=== PATIENT | female | born 1990 | race Caucasian/White ===

== ENCOUNTER 2017-01-15 15:52 | Emergency (ER) | payer OTHER ==
[~2017-01-15] VITALS: Ht 154.9 cm; Wt 83.0 kg
[~2017-01-15 15:52] MED LIST: ATEN100T PO; DOXE25CA2 PO; IBUP-232 PO; LURA1TAB2 PO; MACR100C2 PO; MOBI15TA PO; PRIL40CA PO; PROM25TA5 PO; VIST50CA PO; ZANTTAB PO; ZOFR4TAB3 SL
[2017-01-15 16:01] VITALS: BP 112/84; PULSE 70; RESP 16; TEMP 98.1; O2SAT 98
[2017-01-15] MEDS ORDERED: LITH150C PO (16:17)
[2017-01-15] MEDS ORDERED: OMEP40CA2 PO (16:17)
--- NOTE | 2017-01-15 16:26 | PD ---
HPI Chief Complaint: Abdominal Pain Time Seen by Provider: 16:19 Travel History International Travel<30 days: No Contact w/Intl Traveler<30days: No Traveled to known affect area: No History of Present Illness HPI 26-year-old female with history of PCOS, here for evaluation because she believes she may have ruptured an ovarian cysts. Patient has had left lower quadrant abdominal pain and suprapubic pain for the last 2 days which she describes as sharp, moderate to severe, associated with nausea and vomiting, worse with movement and palpation. She denies vaginal bleeding or discharge. She states she has a Mirena IUD. No urinary symptoms. She has had one abdominal surgery which consisted of a large ovarian cyst removal. PFSH Past Medical History Hx Anticoagulant Therapy: No Arthritis: Yes (rheumatoid arthritis) Autoimmune Disease: Yes Blood Disorders: No Bipolar Disorder: Yes Anxiety: Yes Depression: Yes (OCD) Heart Rhythm Problems: No Cancer: No Cardiovascular Problems: Yes (HTN, CHOL) High Cholesterol: Yes Chemotherapy: No Chest Pain: Yes Congestive Heart Failure: No Cerebrovascular Accident: No Diabetes: No Diminished Hearing: No Endocrine: No Gastrointestinal Disorders: Yes (IBS) GERD: Yes Genitourinary: Yes Headaches: No Hepatitis: No Hiatal Hernia: No Heparin Induced Thrombocytopen: No Hypertension: Yes Immune Disorder: Yes (RA) Implanted Vascular Access Dvce: No Medical other: Yes (HYPERCHOLESTEROLEMIA) Musculoskeletal: Yes (degenerative disc disease) Neurologic: No Psychiatric: Yes (ANXIETY, BIPOLAR) Reproductive: Yes (cyst) Respiratory: Yes (POC) Immunizations Current: Yes Migraines: Yes Pancreatitis: Yes Radiation Therapy: No Schizophrenia: Yes Seizures: No Sickle Cell Disease: No Thyroid Disease: No Ulcer: No Influenza Vaccination: No PNEUMOCCOCAL Vaccine (Year): 2 ?: Not LMP: AMY IUD/OCT. : 1 Para: 1 Miscarriage: 0 : 0 Ovarian Cysts: Yes Past Surgical History Abdominal Surgery: No AICD: No Body Medical Devices: IUD, SCREWS IN BACK Cardiac Surgery: No Section: Yes (2007) Ear Surgery: No Endocrine Surgery: No Eye Surgery: No Genitourinary Surgery: No Gynecologic Surgery: Yes ( 08) Joint Replacement: No Neurologic Surgery: Yes (L4, L5, S1 SEMICONTRAINT DEVICE/FUSION) Oral Surgery: Yes (TMJ PROCEDURE) Pacemaker: No Thoracic Surgery: No Other Surgery: Yes (endoscopy colonoscopy) Social History Alcohol Use: Yes (socially) Tobacco Use: No (nicotine patch) Substance Use: No Allergies-Medications (Allergen,Severity, Reaction): Coded Allergies: Paxil (Verified Allergy, Severe, UNKNOWN, 01/15/17) Reported Meds & Prescriptions Reported Meds & Active Scripts Active Reported [place] Carbonate 150 Mg Cap 150 Mg PO BID Omeprazole 40 Mg Cap 40 Mg PO DAILY Zantac 150 Maximum Strength (Ranitidine HCl) 150 Mg Tab 150 Mg PO HS Atenolol 100 Mg Tab 100 Mg PO DAILY Doxepin (Doxepin HCl) 25 Mg Cap 25 Mg PO HS Mobic (Meloxicam) 15 Mg Tab 15 Mg PO DAILY Vistaril (Hydroxyzine Pamoate) 50 Mg Cap 50 Mg PO QID PRN Latuda (Lurasidone) 60 Mg Tab 60 Mg PO DAILY Review of Systems Except as stated in HPI: all other systems reviewed are Neg Physical Exam Narrative GENERAL: Well-developed, well-nourished, no acute distress. SKIN: Warm and dry. HEAD: Atraumatic. Normocephalic. EYES: Pupils equal and round. No scleral icterus. No injection or drainage. ENT: No nasal bleeding or discharge. Mucous membranes pink and moist. CARDIOVASCULAR: Regular rate and rhythm. RESPIRATORY: No accessory muscle use. Clear to auscultation. Breath sounds equal bilaterally. GASTROINTESTINAL: Abdomen soft, nondistended. Moderate left lower quadrant tenderness without rebound or guarding. Mild suprapubic tenderness. Rest of abdomen is soft and nontender. Normal bowel sounds. MUSCULOSKELETAL: No obvious deformities. No clubbing. No cyanosis. No edema. NEUROLOGICAL: Awake and alert. No obvious cranial nerve deficits. Motor grossly within normal limits. Normal speech. PSYCHIATRIC: Appropriate mood and affect; insight and judgment normal. Data Data Last Documented VS Vital Signs Date Time Temp Pulse Resp B/P Pulse Ox O2 Delivery O2 Flow Rate FiO2 01/15/17 17:05 18 01/15/17 16:01 98.1 70 112/84 98 Orders Complete Blood Count With Diff (01/15/17 16:22) Comprehensive Metabolic Panel (01/15/17 16:22) Urinalysis - C+S If Indicated (01/15/17 16:22) Ed Urine Pregnancytest Poc (01/15/17 16:22) Morphine Inj (Morphine Inj) (01/15/17 16:30) Ondansetron Inj (Zofran Inj) (01/15/17 16:30) Urine Culture (01/15/17 16:30) Us Pelvis Comp W Dop Transvag (01/15/17 ) Ketorolac Inj (Toradol Inj) (01/15/17 18:45) Labs Laboratory Tests Test 01/15/17 01/15/17 16:30 16:50 Urine Collection Type CLEAN CATCH Urine Color STRAW Urine Turbidity SLIGHT Urine pH 6.0 Urine Specific [place] 1.003 Urine Protein NEG mg/dL Urine Glucose (UA) NEG mg/dL Urine Ketones NEG mg/dL Urine Occult Blood NEG Urine Nitrite NEG Urine Bilirubin NEG Urine Leukocyte Esterase TRACE Urine WBC 6-8 /hpf Urine Squamous Epithelial > 8 /hpf Cells Urine Amorphous Sediment MOD Urine Bacteria MOD /hpf Microscopic Urinalysis Comment CULTURE INDICATED Urine Collection Time 1630 White Blood Count 9.1 TH/MM3 Red Blood Count 4.16 MIL/MM3 Hemoglobin 11.7 GM/DL Hematocrit 34.7 % Mean Corpuscular Volume 83.5 FL Mean Corpuscular Hemoglobin 28.1 PG Mean Corpuscular Hemoglobin 33.7 % Concent Red Cell Distribution Width 12.6 % Platelet Count 321 TH/MM3 Mean Platelet Volume 6.4 FL Neutrophils (%) (Auto) 53.7 % Lymphocytes (%) (Auto) 35.9 % Monocytes (%) (Auto) 5.5 % Eosinophils (%) (Auto) 4.3 % Basophils (%) (Auto) 0.6 % Neutrophils # (Auto) 4.8 TH/MM3 Lymphocytes # (Auto) 3.3 TH/MM3 Monocytes # (Auto) 0.5 TH/MM3 Eosinophils # (Auto) 0.4 TH/MM3 Basophils # (Auto) 0.1 TH/MM3 CBC Comment DIFF FINAL Differential Comment Sodium Level 138 MEQ/L Potassium Level 3.8 MEQ/L Chloride Level 105 MEQ/L Carbon Dioxide Level 23.8 MEQ/L Anion Gap 9 MEQ/L Blood Urea Nitrogen 12 MG/DL Creatinine 0.77 MG/DL Estimat Glomerular Filtration 89 ML/MIN Rate Random Glucose 82 MG/DL Calcium Level 8.5 MG/DL Total Bilirubin 0.9 MG/DL Aspartate Amino Transf 21 U/L (AST/SGOT) Alanine Aminotransferase 34 U/L (ALT/SGPT) Alkaline Phosphatase 44 U/L Total Protein 7.4 GM/DL Albumin 3.9 GM/DL [facility] Medical Decision Making Medical Screen Exam Complete: Yes Emergency Medical Condition: Yes Medical Record Reviewed: Yes Differential Diagnosis Ovarian cyst, ovarian torsion, ectopic , colitis, diverticulitis, UTI, cystitis, PID Narrative Course Vital signs show heart rate 70, blood pressure 112/84, pulse ox 98% on room air , oral temp of 98.1F. CBC is unremarkable. CMP is unremarkable. UA shows trace leukocyte esterase, 6-8 WBCs, greater than 8 squamous epithelial cells, moderate bacteria Pelvic ultrasound: CONCLUSION: 1. Intrauterine device. 2. No evidence for torsion. 3. Bilateral ovarian follicles. Upon reassessment the patient is resting comfortably. She still having some pain. Again she denies any vaginal discharge or bleeding. UA findings are likely contaminant. Will hold antibiotics until cultures are obtained. Patient reports that her signs and symptoms are very similar to when she has had ovarian cysts rupture in the past. There are no peritoneal signs on exam. She has had multiple CT abdomen/pelvis in the emergency Department in the past. I do not believe that there is an acute intra-abdominal process that warrants a CT abdomen pelvis at this time. 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 She was informed on when to return to the emergency department. She verbalizes understanding and agreement with plan. Diagnosis Primary Impression: Ovarian cyst Qualified Code: N83.201 - Cysts of both ovaries Referrals: [facility] 3 days Additional Instructions: Follow-up with your fire alarm operator this week. Return to the emergency department for worsening symptoms or any other concerns. Scripts Tramadol 50 Mg Tab50 Mg PO Q6H PRN (PAIN) #12 TAB Ref 0 Prov:Guillermo Potts MD 01/15/17 Disposition: DISCHARGE HOME Condition: Stable Guillermo Potts MD Jan 15, 2017 16:26
[2017-01-15] MEDS ORDERED: MORPHINE SULFATE 4 MG/ML INJ IV PUSH ONE (16:30)
[2017-01-15] MEDS ORDERED: ONDANSETRON HCL 4 MG/2 ML VIAL IV PUSH ONE (16:30)
[2017-01-15 17:02] LABS: BLOOD, URINE NEG (NEG); GLUCOSE,URINE NEG (NEG); KETONE, URINE NEG (NEG); NITRITE,URINE NEG (NEG)
[2017-01-15 17:03] LABS: METHOD OF COLLECTION CLEAN CATCH; URINE COLOR STRAW (YELLW/STRAW)
[2017-01-15 17:07] LABS: BACTERIA, URINE MOD /hpf; COMMENT (UR) CULTURE INDICATED; COMMENT2 (UR) MUCOUS PRESENT; CULTURE IF INDICATED CULTURE INDICATED; SQUAMOUS EPITHELIAL CELL URINE > 8 /hpf (0-5)
[2017-01-15 17:07] LABS: CHLORIDE 105 MEQ/L (98-107); POTASSIUM 3.8 MEQ/L (3.5-5.1); SODIUM (NA) 138 MEQ/L (136-145)
[2017-01-15 17:11] LABS: ANION GAP 9 MEQ/L (5-15); BICARBONATE 23.8 MEQ/L (21.0-32.0); BLOOD UREA NITROGEN 12 MG/DL (7-18)
[2017-01-15 17:14] LABS: ALT (GPT) 34 U/L (10-53); AST (GOT) 21 U/L (15-37); GLOMERULAR FILTRATION RATE 89 ML/MIN (>89)
[2017-01-15 17:15] LABS: TOTAL BILIRUBIN ADULT 0.9 MG/DL (0.2-1.0)
[2017-01-15 17:17] LABS: ALKALINE PHOSPHATASE 44 U/L (45-117)
[2017-01-15 17:46] LABS: AUTOMATED NEUTROPHIL # 4.8 TH/MM3 (1.8-7.7); BASOPHIL # 0.1 TH/MM3 (0-0.2); BASOPHIL % 0.6 % (0.0-2.0); EOSINOPHIL # 0.4 TH/MM3 (0-0.4); EOSINOPHIL % 4.3 % (0.0-4.0); HEMATOCRIT 34.7 % (35.0-46.0); HEMO FLAGS DIFF FINAL; LYMPH % 35.9 % (9.0-44.0); LYMPHOCYTE # 3.3 TH/MM3 (1.0-4.8); MEAN CELL VOLUME 83.5 FL (80.0-100.0); MEAN CORPUSCULAR HEMOGLOBIN 28.1 PG (27.0-34.0); MEAN CORPUSCULAR HGB CONC 33.7 % (32.0-36.0); MONO % 5.5 % (0.0-8.0); NEUT % 53.7 % (16.0-70.0); PLATELET COUNT 321 TH/MM3 (150-450); RED BLOOD COUNT 4.16 MIL/MM3 (4.00-5.30); RED CELL DISTRIBUTION WIDTH 12.6 % (11.6-17.2); WHITE BLOOD COUNT 9.1 TH/MM3 (4.0-11.0)
[2017-01-15] MEDS ORDERED: KETOROLAC TROMETHAMINE 30 MG/ML (IVP) VIAL IV PUSH ONE (18:45)
--- NOTE | 2017-01-15 18:45 | RADHPO ---
EXAM DATE/TIME: 01/15/2017 17:47 [facility] COMPARISON: No previous studies available for comparison. INDICATIONS : Left side pelvic pain. MEDICAL HISTORY : Irritable bowel syndrome. Rheumatoid arthritis. Hypercholesterolemia. Polycystic ovarian syndrome. Ri ght leg numbness from sciatica nerve. Hypertension. Pancreatitis. GERD. Arthritis. SURGICAL HISTORY : section. TMJ Procedure. Back surgery. Endoscopy. Colonoscopy. ENCOUNTER: [facility] ACUITY: 2 days PAIN SCORE: 8/10 LOCATION: Left pelvis MEASUREMENTS: UTERUS: 6.8 x 3.1 x 4.4 cm ENDOMETRIAL STRIPE: 4 mm RIGHT OVARY: 2.9 x 1.6 x 1.8 cm LEFT OVARY: 2.6 x 2.1 x 3.3 cm FINDINGS: UTERUS: The myometrium has homogeneous echotexture without mass. IUD in place. RIGHT OVARY: Ovary contains no mass or significant cystic lesion. Flow noted. Follicles are noted, largest measuri ng 17 mm. LEFT OVARY: Ovary contains no mass or significant cystic lesion. Flow noted. Follicles are noted the largest quynh suring 20 mm. MISCELLANEOUS: No free fluid. CONCLUSION: 1. Intrauterine device. 2. No evidence for torsion. 3. Bilateral ovarian follicles. Jw Garduno MD on January 15, 2017 at 18:42 Board Certified Radiologist. This report was verified electronically.
[2017-01-15] MEDS ORDERED: TRAM50TA PO (18:50)
[2017-01-15 18:57] VITALS: BP 116/73; PULSE 67; RESP 18; TEMP 98.1; O2SAT 98
[2017-04-06] MEDS ORDERED: DIFL150T PO (10:49)
== END 2017-01-15 19:15 | disposition home or self-care (01) ==
LOC: PHED 15:52
DX: N83.202 Unspecified ovarian cyst, left side (principal); N83.201 Unspecified ovarian cyst, right side
CPT/HCPCS: 76830; 76856; 80053; 81001; 84703; 85025; 87086; 93975; 96374; 96375; 99284; J1885; J2270; J2405

== ENCOUNTER 2017-02-11 03:54 | Emergency (ER) | payer OTHER ==
[~2017-02-11] VITALS: Ht 154.9 cm; Wt 78.0 kg
[~2017-02-11 03:54] MED LIST changes: -IBUP-232 PO; +LITH150C PO; -MACR100C2 PO; +OMEP40CA2 PO; -PRIL40CA PO; -PROM25TA5 PO; +TRAM50TA PO; -ZOFR4TAB3 SL
[2017-02-11 04:01] VITALS: BP 147/94; PULSE 100; RESP 13; TEMP 98.4; O2SAT 96
[2017-02-11 04:26] VITALS: RESP 13; O2SAT 96
[2017-02-11 04:29] LABS: AUTOMATED NEUTROPHIL # 8.9 TH/MM3 (1.8-7.7); BASOPHIL # 0.1 TH/MM3 (0-0.2); BASOPHIL % 0.5 % (0.0-2.0); EOSINOPHIL # 0.1 TH/MM3 (0-0.4); EOSINOPHIL % 0.8 % (0.0-4.0); HEMO FLAGS DIFF FINAL; LYMPH % 26.2 % (9.0-44.0); LYMPHOCYTE # 3.5 TH/MM3 (1.0-4.8); MEAN CELL VOLUME 82.1 FL (80.0-100.0); MONO % 6.6 % (0.0-8.0); NEUT % 65.9 % (16.0-70.0); PLATELET COUNT 177 TH/MM3 (150-450); RED BLOOD COUNT 5.12 MIL/MM3 (4.00-5.30); RED CELL DISTRIBUTION WIDTH 13.2 % (11.6-17.2); WHITE BLOOD COUNT 13.5 TH/MM3 (4.0-11.0)
[2017-02-11 04:49] LABS: ANION GAP 10 MEQ/L (5-15); AST (GOT) 45 U/L (15-37); BICARBONATE 23.3 MEQ/L (21.0-32.0); BLOOD UREA NITROGEN 10 MG/DL (7-18); CHLORIDE 105 MEQ/L (98-107); GLOMERULAR FILTRATION RATE 117 ML/MIN (>89); POTASSIUM 3.4 MEQ/L (3.5-5.1); SODIUM (NA) 138 MEQ/L (136-145)
[2017-02-11 04:52] LABS: ALKALINE PHOSPHATASE 58 U/L (45-117); ALT (GPT) 69 U/L (10-53); TOTAL BILIRUBIN ADULT 1.2 MG/DL (0.2-1.0)
[2017-02-11 04:54] LABS: BACTERIA, URINE RARE /hpf; BLOOD, URINE NEG (NEG); COMMENT (UR) CULT NOT INDICATED; CULTURE IF INDICATED CULT NOT INDICATED; GLUCOSE,URINE NEG (NEG); HYALINE CAST, URINE 28 /lpf (RARE); KETONE, URINE 10 mg/dL (NEG); MUCUS URINE FEW /lpf (OCC); NITRITE,URINE NEG (NEG); PH, URINE 5.5 (5.0-8.5); SQUAMOUS EPITHELIAL CELL URINE 17 /hpf (0-5); URINE COLOR YELLOW (YELLW/STRAW)
[2017-02-11] MEDS ORDERED: SODIUM CHLOR 0.9% 1000 ML INJ 1,000 ML IV SCH ×2 (05:23→05:45)
[2017-02-11] MEDS ORDERED: ONDANSETRON HCL 4 MG/2 ML VIAL IVP ONE (05:30)
[2017-02-11] MEDS ORDERED: PANTOPRAZOLE SODIUM 40 MG VIAL IVP ONE (05:30)
[2017-02-11] MEDS ORDERED: KETOROLAC TROMETHAMINE 30 MG/ML (IVP) VIAL IVP ONE (05:30)
--- NOTE | 2017-02-11 05:32 | PD ---
HPI Chief Complaint: Abdominal Pain Time Seen by Provider: 05:09 Travel History International Travel<30 days: No Contact w/Intl Traveler<30days: No Traveled to known affect area: No History of Present Illness HPI 26-year-old female complains of abdominal pain with nausea vomiting. Patient states that the abdominal pain started yesterday afternoon. Patient states the pain is sharp burning pain, colitis throughout epigastric area. Patient denies any pain radiation. Patient states that she had intermittent nausea vomiting. Patient denies any diarrhea. Patient denies any dysuria or frequency. Patient denies any vaginal discharge or bleeding. Patient has history of alcohol abuse. Patient has history of pancreatitis in the past. Patient states that last alcohol drink was 2 days ago. On a scale of 1-10 the pain is a 9. PFSH Past Medical History Hx Anticoagulant Therapy: No Arthritis: Yes (rheumatoid arthritis) Autoimmune Disease: Yes Blood Disorders: No Bipolar Disorder: Yes Anxiety: Yes Depression: Yes (OCD) Heart Rhythm Problems: No Cancer: No Cardiovascular Problems: Yes (HTN, CHOL) High Cholesterol: Yes Chemotherapy: No Chest Pain: Yes Congestive Heart Failure: No Cerebrovascular Accident: No Diabetes: No Diminished Hearing: No Endocrine: No Gastrointestinal Disorders: Yes (IBS) GERD: Yes Genitourinary: Yes Headaches: No Hepatitis: No Hiatal Hernia: No Heparin Induced Thrombocytopen: No Hypertension: Yes Immune Disorder: Yes (RA) Implanted Vascular Access Dvce: No Medical other: Yes (HYPERCHOLESTEROLEMIA) Musculoskeletal: Yes (degenerative disc disease) Neurologic: No Psychiatric: Yes (ANXIETY, BIPOLAR) Reproductive: Yes (cyst POLY CYSTIC OVARIAN) Respiratory: Yes (POC) Immunizations Current: Yes Migraines: Yes Pancreatitis: Yes Radiation Therapy: No Schizophrenia: Yes Seizures: No Sickle Cell Disease: No Thyroid Disease: No Ulcer: No PNEUMOCCOCAL Vaccine (Year): 2 ?: Not LMP: OCT 2015 (IUD) : 1 Para: 1 Miscarriage: 0 : 0 Ovarian Cysts: Yes Past Surgical History Abdominal Surgery: No AICD: No Body Medical Devices: IUD, SCREWS IN BACK Cardiac Surgery: No Section: Yes (2007) Ear Surgery: No Endocrine Surgery: No Eye Surgery: No Genitourinary Surgery: No Gynecologic Surgery: Yes ( ) Joint Replacement: No Neurologic Surgery: Yes (L4, L5, S1 SEMICONTRAINT DEVICE/FUSION) Oral Surgery: Yes (TMJ PROCEDURE) Pacemaker: No Thoracic Surgery: No Other Surgery: Yes (endoscopy colonoscopy) Social History Alcohol Use: Yes (socially) Tobacco Use: Yes (1/2PPD) Substance Use: No Allergies-Medications (Allergen,Severity, Reaction): Coded Allergies: Paxil (Verified Allergy, Severe, UNKNOWN, 02/11/17) Reported Meds & Prescriptions Reported Meds & Active Scripts Active Reported [place] Carbonate 150 Mg Cap 150 Mg PO BID Omeprazole 40 Mg Cap 40 Mg PO DAILY Atenolol 100 Mg Tab 100 Mg PO DAILY Doxepin (Doxepin HCl) 25 Mg Cap 25 Mg PO HS Vistaril (Hydroxyzine Pamoate) 50 Mg Cap 50 Mg PO QID PRN Latuda (Lurasidone) 60 Mg Tab 60 Mg PO DAILY Review of Systems General / Constitutional: No: Fever Eyes: No: Visual changes HENT: No: Headaches Cardiovascular: No: Chest Pain or Discomfort Respiratory: No: Shortness of Breath Gastrointestinal: Positive: Nausea, Vomiting, Abdominal Pain Genitourinary: No: Dysuria Musculoskeletal: No: Pain Skin: No Rash Neurologic: No: Weakness Psychiatric: No: Depression Endocrine: No: Polydipsia Hematologic/Lymphatic: No: Easy Bruising Physical Exam Narrative GENERAL: Well-nourished, well-developed patient. SKIN: Warm and dry. HEAD: Normocephalic. EYES: No scleral icterus. No injection or drainage. NECK: Supple, trachea midline. No JVD or lymphadenopathy. CARDIOVASCULAR: Regular rate and rhythm without murmurs, gallops, or rubs. RESPIRATORY: Breath sounds equal bilaterally. No accessory muscle use. GASTROINTESTINAL: Abdomen soft, nondistended. Patient has moderate tenderness on palpation epigastric area. No rebound tenderness. No mass. MUSCULOSKELETAL: No cyanosis, or edema. BACK: Nontender without obvious deformity. No CVA tenderness. Data Data Last Documented VS Vital Signs Date Time Temp Pulse Resp B/P Pulse Ox O2 Delivery O2 Flow Rate FiO2 02/11/17 04:26 13 96 Room Air 02/11/17 04:01 98.4 100 147/94 Orders Complete Blood Count With Diff (02/11/17 04:11) Comprehensive Metabolic Panel (02/11/17 04:11) Urinalysis - C+S If Indicated (02/11/17 04:11) Ed Urine Pregnancytest Poc (02/11/17 04:11) Iv Access Insert/Monitor (02/11/17 04:11) Oxygen Administration (02/11/17 04:11) Oximetry (02/11/17 04:11) Lipase (02/11/17 04:11) [place] (Li) (02/11/17 04:11) Ondansetron Inj (Zofran Inj) (02/11/17 05:30) Pantoprazole Inj (Protonix Inj) (02/11/17 05:30) Sodium Chlor 0.9% 1000 Ml Inj (Ns 1000 M (02/11/17 05:23) Ketorolac Inj (Toradol Inj) (02/11/17 05:30) Labs Laboratory Tests Test 02/11/17 04:20 White Blood Count 13.5 TH/MM3 Red Blood Count 5.12 MIL/MM3 Hemoglobin 14.3 GM/DL Hematocrit 42.0 % Mean Corpuscular Volume 82.1 FL Mean Corpuscular Hemoglobin 28.0 PG Mean Corpuscular Hemoglobin 34.0 % Concent Red Cell Distribution Width 13.2 % Platelet Count 177 TH/MM3 Mean Platelet Volume 7.5 FL Neutrophils (%) (Auto) 65.9 % Lymphocytes (%) (Auto) 26.2 % Monocytes (%) (Auto) 6.6 % Eosinophils (%) (Auto) 0.8 % Basophils (%) (Auto) 0.5 % Neutrophils # (Auto) 8.9 TH/MM3 Lymphocytes # (Auto) 3.5 TH/MM3 Monocytes # (Auto) 0.9 TH/MM3 Eosinophils # (Auto) 0.1 TH/MM3 Basophils # (Auto) 0.1 TH/MM3 CBC Comment DIFF FINAL Differential Comment Urine Color YELLOW Urine Turbidity HAZY Urine pH 5.5 Urine Specific [place] 1.023 Urine Protein 30 mg/dL Urine Glucose (UA) NEG mg/dL Urine Ketones 10 mg/dL Urine Occult Blood NEG Urine Nitrite NEG Urine Bilirubin NEG Urine Urobilinogen 2.0 MG/DL Urine Leukocyte Esterase TRACE Urine RBC 1 /hpf Urine WBC 2 /hpf Urine Squamous Epithelial 17 /hpf Cells Urine Bacteria RARE /hpf Urine Hyaline Casts 28 /lpf Urine Mucus FEW /lpf Microscopic Urinalysis Comment CULT NOT INDICATED Sodium Level 138 MEQ/L Potassium Level 3.4 MEQ/L Chloride Level 105 MEQ/L Carbon Dioxide Level 23.3 MEQ/L Anion Gap 10 MEQ/L Blood Urea Nitrogen 10 MG/DL Creatinine 0.61 MG/DL Estimat Glomerular Filtration 117 ML/MIN Rate Random Glucose 107 MG/DL Calcium Level 8.2 MG/DL Total Bilirubin 1.2 MG/DL Aspartate Amino Transf 45 U/L (AST/SGOT) Alanine Aminotransferase 69 U/L (ALT/SGPT) Alkaline Phosphatase 58 U/L Total Protein 7.3 GM/DL Albumin 3.7 GM/DL Lipase 522 U/L [place] Level 0.3 MEQ/L [facility] Medical Decision Making Medical Screen Exam Complete: Yes Emergency Medical Condition: Yes Interpretation(s) 5:32 AM. CBC WBC 13.5. Normal differential. Potassium 3.4. Calcium 8.2. Total bili 1.2. AST 45. L2 69. Lipase 522. [place] 0.3. UA negative. Differential Diagnosis Differential diagnosis including gastritis, PUD, pancreatitis, cholecystitis, colitis, UTI, pyelonephritis, nephrolithiasis. Narrative Course 26-year-old female with abdominal pain. History of EtOH abuse and pancreatitis. Normal saline solution 1 L IV bolus. Normal saline solution 1 25 cc an hour. Toradol 30 mg IV. Zofran 4 mg IV was given by EMS. Diagnosis Primary Impression: Acute pancreatitis Qualified Code: K85.20 - Alcohol-induced acute pancreatitis without infection or necrosis Fernando Howard MD Feb 11, 2017 05:32
[2017-02-11] MEDS ORDERED: MORPHINE SULFATE 4 MG/ML INJ IV PUSH ONE (07:15)
[2017-02-11 07:31] VITALS: BP 137/98; PULSE 101; RESP 16; O2SAT 97
[2017-02-11 09:32] VITALS: BP 120/82; PULSE 92; RESP 16; O2SAT 96
[2017-02-11] MEDS ORDERED: ACETAMINOPHEN/HYDROcodone 325 MG/5 MG TAB PO ONE (09:45)
[2017-02-11] MEDS ORDERED: ZOFR4TAB3 SL (10:11)
[2017-02-11] MEDS ORDERED: HYDR-3533 PO (10:11)
--- NOTE | 2017-02-11 10:13 | PD ---
Physical Exam Date Seen by Provider: Feb 11, 2017 Time Seen by Provider: 07:00 Narrative Patient initially seen and evaluated by Dr. Howard, please see his notes for further details. Here with nausea vomiting and abdominal pains, has pancreatitis. She is able to tolerate by mouth's and as per discussion with previous physician, plan is to release the patient after repeat lipase. Lipase returns showing that there is no elevation increase. At this point, plan would be to release the patient with follow-up to primary care physician. Return for any worsening in symptoms as needed. The plan has been discussed with the patient and she states understanding. Data Data Last Documented VS Vital Signs Date Time Temp Pulse Resp B/P Pulse Ox O2 Delivery O2 Flow Rate FiO2 02/11/17 09:32 92 16 120/82 96 Room Air 02/11/17 04:01 98.4 Orders Complete Blood Count With Diff (02/11/17 04:11) Comprehensive Metabolic Panel (02/11/17 04:11) Urinalysis - C+S If Indicated (02/11/17 04:11) Ed Urine Pregnancytest Poc (02/11/17 04:11) Iv Access Insert/Monitor (02/11/17 04:11) Oxygen Administration (02/11/17 04:11) Oximetry (02/11/17 04:11) Lipase (02/11/17 04:11) [place] (Li) (02/11/17 04:11) Ondansetron Inj (Zofran Inj) (02/11/17 05:30) Pantoprazole Inj (Protonix Inj) (02/11/17 05:30) Sodium Chlor 0.9% 1000 Ml Inj (Ns 1000 M (02/11/17 05:23) Ketorolac Inj (Toradol Inj) (02/11/17 05:30) Sodium Chlor 0.9% 1000 Ml Inj (Ns 1000 M (02/11/17 05:45) Morphine Inj (Morphine Inj) (02/11/17 07:15) Lipase (02/11/17 08:43) Acetamin-Hydrocod 325-5 Mg ([place] 5-325 (02/11/17 09:45) Labs Laboratory Tests Test 02/11/17 02/11/17 04:20 09:28 White Blood Count 13.5 TH/MM3 Red Blood Count 5.12 MIL/MM3 Hemoglobin 14.3 GM/DL Hematocrit 42.0 % Mean Corpuscular Volume 82.1 FL Mean Corpuscular Hemoglobin 28.0 PG Mean Corpuscular Hemoglobin 34.0 % Concent Red Cell Distribution Width 13.2 % Platelet Count 177 TH/MM3 Mean Platelet Volume 7.5 FL Neutrophils (%) (Auto) 65.9 % Lymphocytes (%) (Auto) 26.2 % Monocytes (%) (Auto) 6.6 % Eosinophils (%) (Auto) 0.8 % Basophils (%) (Auto) 0.5 % Neutrophils # (Auto) 8.9 TH/MM3 Lymphocytes # (Auto) 3.5 TH/MM3 Monocytes # (Auto) 0.9 TH/MM3 Eosinophils # (Auto) 0.1 TH/MM3 Basophils # (Auto) 0.1 TH/MM3 CBC Comment DIFF FINAL Differential Comment Urine Color YELLOW Urine Turbidity HAZY Urine pH 5.5 Urine Specific [place] 1.023 Urine Protein 30 mg/dL Urine Glucose (UA) NEG mg/dL Urine Ketones 10 mg/dL Urine Occult Blood NEG Urine Nitrite NEG Urine Bilirubin NEG Urine Urobilinogen 2.0 MG/DL Urine Leukocyte Esterase TRACE Urine RBC 1 /hpf Urine WBC 2 /hpf Urine Squamous Epithelial 17 /hpf Cells Urine Bacteria RARE /hpf Urine Hyaline Casts 28 /lpf Urine Mucus FEW /lpf Microscopic Urinalysis Comment CULT NOT INDICATED Sodium Level 138 MEQ/L Potassium Level 3.4 MEQ/L Chloride Level 105 MEQ/L Carbon Dioxide Level 23.3 MEQ/L Anion Gap 10 MEQ/L Blood Urea Nitrogen 10 MG/DL Creatinine 0.61 MG/DL Estimat Glomerular Filtration 117 ML/MIN Rate Random Glucose 107 MG/DL Calcium Level 8.2 MG/DL Total Bilirubin 1.2 MG/DL Aspartate Amino Transf 45 U/L (AST/SGOT) Alanine Aminotransferase 69 U/L (ALT/SGPT) Alkaline Phosphatase 58 U/L Total Protein 7.3 GM/DL Albumin 3.7 GM/DL Lipase 522 U/L 409 U/L [place] Level 0.3 MEQ/L [facility] Medical Record Reviewed: Yes Supervised Visit with [place]: No Diagnosis Primary Impression: Acute pancreatitis Qualified Code: K85.20 - Alcohol-induced acute pancreatitis without infection or necrosis Med/Other Pt SpecificInfo: Prescription(s) given Scripts Ondansetron Odt (Zofran Odt)4 Mg Tab4 Mg SL Q6HR PRN (Nausea/Vomiting) #7 TAB Ref 0 Prov:Emily Mack MD 02/11/17 Hydrocodone-Acetaminophen (Lortab)5-325 Mg Tab1-2 Tab PO Q6H PRN (PAIN) #15 TAB Ref 0 Prov:Emily Mack MD 02/11/17 Disposition: 01 DISCHARGE HOME Condition: Stable Emily Mack MD Feb 11, 2017 10:13
[2017-04-06] MEDS ORDERED: DIFL150T PO (10:49)
== END 2017-02-11 11:48 | disposition home or self-care (01) ==
LOC: NEPE 03:54
DX: K85.20 Alcohol induced acute pancreatitis without necrosis or infection (principal); I10 Essential (primary) hypertension; E78.00 Pure hypercholesterolemia, unspecified; F17.200 Nicotine dependence, unspecified, uncomplicated; Z87.39 Personal history of other diseases of the musculoskeletal system and connective tissue; Z86.2 Personal history of diseases of the blood and blood-forming organs and certain disorders involving the immune mechanism; Z86.59 Personal history of other mental and behavioral disorders; Z86.79 Personal history of other diseases of the circulatory system; Z87.19 Personal history of other diseases of the digestive system; Z87.448 Personal history of other diseases of urinary system; Z87.42 Personal history of other diseases of the female genital tract; Z86.69 Personal history of other diseases of the nervous system and sense organs
CPT/HCPCS: 80053; 80178; 81001; 83690; 84703; 85025; 96361; 96374; 96375; 99284; C9113; J1885; J2270; J2405; J7030

== ENCOUNTER 2017-05-18 12:41 | Emergency (ER) | payer OTHER ==
[~2017-05-18 12:41] MED LIST changes: +DIFL150T PO; +HYDR-3533 PO; -MOBI15TA PO; -TRAM50TA PO; -ZANTTAB PO; +ZOFR4TAB3 SL
[2017-05-18 12:45] VITALS: BP 138/97; PULSE 69; RESP 20; TEMP 98.4; O2SAT 98
[2017-05-18 13:00] LABS: BLOOD, URINE NEG (NEG); GLUCOSE,URINE NEG (NEG); KETONE, URINE NEG (NEG); NITRITE,URINE NEG (NEG)
[2017-05-18 13:11] LABS: COMMENT (UR) CULT NOT INDICATED; CULTURE IF INDICATED CULT NOT INDICATED; METHOD OF COLLECTION CLEAN CATCH; SQUAMOUS EPITHELIAL CELL URINE 0-5 /hpf (0-5); URINE COLOR YELLOW (YELLW/STRAW); WBC, URINE 0-2 /hpf (0-5)
[2017-05-18] MEDS ORDERED: SODIUM CHLOR 0.9% 1000 ML INJ 1,000 ML IV ONE (14:15)
[2017-05-18 14:38] LABS: AUTOMATED NEUTROPHIL # 5.9 TH/MM3 (1.8-7.7); BASOPHIL % 0.3 % (0.0-2.0); EOSINOPHIL # 0.3 TH/MM3 (0-0.4); EOSINOPHIL % 3.2 % (0.0-4.0); HEMATOCRIT 37.5 % (35.0-46.0); HEMO FLAGS DIFF FINAL; LYMPH % 30.4 % (9.0-44.0); MEAN CELL VOLUME 83.7 FL (80.0-100.0); MEAN CORPUSCULAR HEMOGLOBIN 27.7 PG (27.0-34.0); NEUT % 61.1 % (16.0-70.0); PLATELET COUNT 208 TH/MM3 (150-450); RED BLOOD COUNT 4.48 MIL/MM3 (4.00-5.30); WHITE BLOOD COUNT 9.8 TH/MM3 (4.0-11.0)
[2017-05-18] MEDS ORDERED: KETOROLAC TROMETHAMINE 30 MG/ML (IVP) VIAL IV PUSH ONE (14:45)
[2017-05-18 14:46] LABS: CHLORIDE 106 MEQ/L (98-107); SODIUM (NA) 140 MEQ/L (136-145)
[2017-05-18 14:50] LABS: ANION GAP 8 MEQ/L (5-15); BICARBONATE 26.1 MEQ/L (21.0-32.0); BLOOD UREA NITROGEN 16 MG/DL (7-18)
[2017-05-18 14:53] LABS: ALT (GPT) 44 U/L (10-53); AST (GOT) 24 U/L (15-37); GLOMERULAR FILTRATION RATE 101 ML/MIN (>89)
[2017-05-18 14:55] LABS: TOTAL BILIRUBIN ADULT 0.5 MG/DL (0.2-1.0)
[2017-05-18 14:56] LABS: ALKALINE PHOSPHATASE 41 U/L (45-117)
[2017-05-18 16:15] VITALS: BP 125/92; PULSE 67; RESP 16; O2SAT 98
[2017-05-18] MEDS ORDERED: MORPHINE SULFATE 8 MG/ML INJ IV PUSH ONE (16:15)
[2017-05-18] MEDS ORDERED: ONDANSETRON HCL 4 MG/2 ML VIAL IV PUSH ONE (16:15)
--- NOTE | 2017-05-18 17:09 | RADRPT ---
EXAM DATE/TIME: 05/18/2017 15:34 [facility] COMPARISON: No previous studies available for comparison. INDICATIONS : Pelvic pain. MEDICAL HISTORY : Hypertension. Hypercholesterolemia. Gastroesophageal reflux disease. Migraine. Numbness. Chest pain. Irritable bowel syndrome. Pancreatitis. Polycystic ovarian syndrome. Degenerative disc disease. Rheum atoid arthritis. Anxiety. Bipolar. Schizophrenia. Claustrophobia. Overdose. SURGICAL HISTORY : section. TMJ procedure. L4, L5, S1 semicontraint device/fusion. Endoscopy. Colonoscopy. ENCOUNTER: Subsequent ACUITY: 2 days PAIN SCORE: 8/10 LOCATION: Bilateral pelvis MEASUREMENTS: TRANSABDOMINAL: RIGHT OVARY: 2.5 x 2.1 x 1.1 cm TRANSVAGINAL: UTERUS: 5.4 x 3.9 x 2.5 cm ENDOMETRIAL STRIPE: 5 mm LEFT OVARY: 3.5 x 2.9 x 2.7 cm FINDINGS: UTERUS: Intrauterine device is noted. Uterus is otherwise unremarkable. RIGHT OVARY: Ovary contains no mass or significant cystic lesion. LEFT OVARY: Small simple appearing cyst. MISCELLANEOUS: No free fluid. CONCLUSION: Unremarkable sonographic appearance of the pelvis Tylor Shafer MD on May 18, 2017 at 17:04 Board Certified Radiologist. This report was verified electronically.
[2017-05-18] MEDS ORDERED: cefTRIAXone INJ 2,000 MG in SODIUM CHLORIDE 0.9% INJ 100 ML IV ONE (17:45)
[2017-05-18] MEDS ORDERED: TYLETAB34 PO (18:50)
[2017-05-18] MEDS ORDERED: DOXY100C PO (18:51)
[2017-05-18] MEDS ORDERED: DIFL150T PO (18:51)
--- NOTE | 2017-05-18 18:53 | PD ---
HPI Chief Complaint: Abdominal Pain Time Seen by Provider: 13:10 Travel History International Travel<30 days: No Contact w/Intl Traveler<30days: No Traveled to known affect area: No History of Present Illness HPI This is a 27-year-old female with a past medical history of polycystic ovarian syndrome and suspect the [place] syndrome that is being investigated for confirmation and rheumatoid arthritis present with complaint of 3-4 days of left pelvic pain. Patient has been taken Tylenol [id number] for the pain without improvement in symptoms. Patient noted pain on the level of a 9 out of 10 today with associated nausea. Patient denies fever and chills. She also denies a decrease in appetite. PFSH Past Medical History Hx Anticoagulant Therapy: No Arthritis: Yes (rheumatoid arthritis) Autoimmune Disease: Yes Blood Disorders: No Bipolar Disorder: Yes Anxiety: Yes Depression: Yes (OCD) Heart Rhythm Problems: No Cancer: No Cardiovascular Problems: Yes (HTN, CHOL) High Cholesterol: Yes Chemotherapy: No Chest Pain: Yes Congestive Heart Failure: No Cerebrovascular Accident: No Diabetes: No Diminished Hearing: No Endocrine: No Gastrointestinal Disorders: Yes (IBS) GERD: Yes Genitourinary: Yes Headaches: No Hepatitis: No Hiatal Hernia: No Heparin Induced Thrombocytopen: No Hypertension: Yes Immune Disorder: Yes (RA) Implanted Vascular Access Dvce: No Medical other: Yes (HYPERCHOLESTEROLEMIA) Musculoskeletal: Yes (degenerative disc disease) Neurologic: No Psychiatric: Yes (ANXIETY, BIPOLAR) Reproductive: Yes (cyst POLY CYSTIC OVARIAN) Respiratory: Yes (POC) Immunizations Current: Yes Migraines: Yes Pancreatitis: Yes Radiation Therapy: No Schizophrenia: Yes Seizures: No Sickle Cell Disease: No Thyroid Disease: No Ulcer: No PNEUMOCCOCAL Vaccine (Year): 2 ?: Not : 1 Para: 1 Miscarriage: 0 : 0 Ovarian Cysts: Yes (PCOS) Past Surgical History Abdominal Surgery: No AICD: No Body Medical Devices: IUD, SCREWS IN BACK Cardiac Surgery: No Section: Yes (2007) Ear Surgery: No Endocrine Surgery: No Eye Surgery: No Genitourinary Surgery: No Gynecologic Surgery: Yes ( 08) Joint Replacement: No Neurologic Surgery: Yes (L4, L5, S1 SEMICONTRAINT DEVICE/FUSION) Oral Surgery: Yes (TMJ PROCEDURE) Pacemaker: No Thoracic Surgery: No Other Surgery: Yes (endoscopy colonoscopy) Social History Alcohol Use: Yes (socially) Tobacco Use: No Substance Use: No Allergies-Medications (Allergen,Severity, Reaction): Coded Allergies: Paxil (Verified Allergy, Severe, UNKNOWN, 05/18/17) Reported Meds & Prescriptions Reported Meds & Active Scripts Active Reported [place] Carbonate 150 Mg Cap 150 Mg PO BID Omeprazole 40 Mg Cap 40 Mg PO DAILY Atenolol 100 Mg Tab 100 Mg PO DAILY Doxepin (Doxepin HCl) 25 Mg Cap 25 Mg PO HS Vistaril (Hydroxyzine Pamoate) 50 Mg Cap 50 Mg PO QID PRN Latuda (Lurasidone) 60 Mg Tab 60 Mg PO DAILY Review of Systems ROS Limitations: Clinical Condition General / Constitutional: No: Fever, Chills, Weight Gain, Weight Loss, Other Eyes: No: Diploplia, Blurred Vision, Photophobia, Drainage, Redness, Foreign Body Sensation, Pain, Tearing, Blind Spots, Visual changes, Blindness, Other HENT: No: Headaches, Vertigo, Lightheadedness, Sore Throat, Rhinitis, Rhinorrhea, Congestion, Nosebleed, Neck Stiffness, Neck Pain, Masses, Gingival Bleeding, Dental Difficulties, Ear Discharge, Earache, Other Cardiovascular: No: Chest Pain or Discomfort, Palpitations, Irregular Rhythm, Tachycardia, Diaphoresis, Syncope, Dyspnea on exertion, Varicosities, Edema, Cyanosis, Varicosities, Phlebitis, Claudication, Other Respiratory: No: Cough, Shortness of Breath, Wheezing, Sneezing, Orthopnea, Hemoptysis, Stridor, Night Sweats, Pleuritic Pain, Other Gastrointestinal: No: Nausea, Vomiting, Diarrhea, Abdominal Pain, Hematemesis, Hematochezia, Constipation, Changes in Bowel Habits, Indigestion, Dysphagia, Loss of Appetite, Other Genitourinary: Positive: Pelvic Pain, No: Urgency, Frequency, Dysuria, Nocturia, Hematuria, Decreased Urinary Output, Oliguria, Hesitancy, Dribbling, Incontinence, Flank Pain, Dyspareunia, Discharge, Dysmenorrhea, Menorrhagia, Metorrhagia, Vaginal Bleeding, Other Musculoskeletal: No: Myalgias, Arthralgias, Limited ROM, Weakness, Cramping, Edema, Pain, Atrophy, Other Skin: No Rash, No Itching, No Dryness, No Lumps, No Hives, No Change in Pigmentation, No Change in nails, No Alopecia, No Lesions, No Breast Lumps, No Breast Tenderness, No Breast Swelling, No Other Neurologic: No: Weakness, Dizziness, Syncope, Focal Abnormalities, Coordination Problem, Tremor, Ataxia, Headache, Change in Mentation, Slurred Speech, Paresthesia, Incontinence, Seizures, Sensory Disturbance, Other Psychiatric: No: Anxiety, Depression, Suicidal Ideations, Disorder of Thought, Mood Disorder, Substance Abuse, Homicidal Ideation, Other Endocrine: No: Heat Intolerance, Cold Intolerance, Polyuria, Polydipsia, Other Hematologic/Lymphatic: No: Easy Bruising, Lymph Node Enlargement, Other Physical Exam Exam Limitations: Clinical Condition Narrative GENERAL: 27 female in moderate distress SKIN: Focused skin assessment warm/dry.no lesions no cyanosis no erythema HEAD: Atraumatic. Normocephalic. EYES: Pupils equal and round and reactive . No scleral icterus. No injection or drainage. ENT: No nasal bleeding or discharge. Dry oral mucosa NECK: Trachea midline. No JVD. CARDIOVASCULAR: S1-S2 appreciated. Regular rate and rhythm. No murmur appreciated. Pulses normal throughout. RESPIRATORY: No accessory muscle use. Clear to auscultation. Breath sounds equal bilaterally. GASTROINTESTINAL: Abdomen soft, non-tender, nondistended. Hepatic and splenic margins not palpable. Bowel sounds normal. No peritoneal signs. Genitourinary: Reproducible tenderness in the left pelvic region no peritoneal sign pelvic exam reveals a scant whitish discharge possibly physiologic with mild CMT positive left adnexal tenderness noted and left adnexal fullness no vaginal bleeding MUSCULOSKELETAL: No obvious deformities. No clubbing. No cyanosis. No edema. NEUROLOGICAL: Awake and alert and oriented 3.. No obvious cranial nerve deficits. Motor and sensory exam grossly within normal limits. Normal speech. No meningeal signs. PSYCHIATRIC: Patient very anxious , affect exaggerated speech pressured No suicidal or homicidal ideation. Data Data Last Documented VS Vital Signs Date Time Temp Pulse Resp B/P Pulse Ox O2 Delivery O2 Flow Rate FiO2 05/18/17 16:15 67 16 125/92 98 05/18/17 12:45 98.4 Orders Urinalysis - C+S If Indicated (05/18/17 12:48) Ed Urine Pregnancytest Poc (05/18/17 12:55) Complete Blood Count With Diff (05/18/17 14:04) Comprehensive Metabolic Panel (05/18/17 14:04) Sodium Chlor 0.9% 1000 Ml Inj (Ns 1000 M (05/18/17 14:15) Ketorolac Inj (Toradol Inj) (05/18/17 14:45) Us Pelvis Comp W Transvaginal (05/18/17 ) Ondansetron Inj (Zofran Inj) (05/18/17 16:15) Morphine Inj (Morphine Inj) (05/18/17 16:15) Gc And Chlamydia Pcr (05/18/17 17:35) Wet Prep Profile (05/18/17 17:35) Ceftriaxone Inj (Rocephin Inj) (05/18/17 17:45) Fentanyl Inj (Fentanyl Inj) (05/18/17 18:00) Labs Laboratory Tests Test 05/18/17 05/18/17 05/18/17 12:50 14:10 17:00 Urine Collection Type CLEAN CATCH Urine Color YELLOW Urine Turbidity CLEAR Urine pH 7.0 Urine Specific [place] 1.014 Urine Protein NEG mg/dL Urine Glucose (UA) NEG mg/dL Urine Ketones NEG mg/dL Urine Occult Blood NEG Urine Nitrite NEG Urine Bilirubin NEG Urine Leukocyte Esterase NEG Urine WBC 0-2 /hpf Urine Squamous Epithelial 0-5 /hpf Cells Microscopic Urinalysis Comment CULT NOT INDICATED Urine Collection Time 12:50 White Blood Count 9.8 TH/MM3 Red Blood Count 4.48 MIL/MM3 Hemoglobin 12.4 GM/DL Hematocrit 37.5 % Mean Corpuscular Volume 83.7 FL Mean Corpuscular Hemoglobin 27.7 PG Mean Corpuscular Hemoglobin 33.0 % Concent Red Cell Distribution Width 13.0 % Platelet Count 208 TH/MM3 Mean Platelet Volume 8.3 FL Neutrophils (%) (Auto) 61.1 % Lymphocytes (%) (Auto) 30.4 % Monocytes (%) (Auto) 5.0 % Eosinophils (%) (Auto) 3.2 % Basophils (%) (Auto) 0.3 % Neutrophils # (Auto) 5.9 TH/MM3 Lymphocytes # (Auto) 3.0 TH/MM3 Monocytes # (Auto) 0.5 TH/MM3 Eosinophils # (Auto) 0.3 TH/MM3 Basophils # (Auto) 0.0 TH/MM3 CBC Comment DIFF FINAL Differential Comment Sodium Level 140 MEQ/L Potassium Level 4.0 MEQ/L Chloride Level 106 MEQ/L Carbon Dioxide Level 26.1 MEQ/L Anion Gap 8 MEQ/L Blood Urea Nitrogen 16 MG/DL Creatinine 0.69 MG/DL Estimat Glomerular Filtration 101 ML/MIN Rate Random Glucose 107 MG/DL Calcium Level 9.4 MG/DL Total Bilirubin 0.5 MG/DL Aspartate Amino Transf 24 U/L (AST/SGOT) Alanine Aminotransferase 44 U/L (ALT/SGPT) Alkaline Phosphatase 41 U/L Total Protein 7.2 GM/DL Albumin 3.8 GM/DL Clue Cells (Wet Prep) NONE SEEN Vaginal Trichomonas (Wet Prep) NONE SEEN Vaginal Yeast (Wet Prep) NONE SEEN MDM Medical Decision Making Medical Screen Exam Complete: Yes Emergency Medical Condition: Yes Medical Record Reviewed: Yes Interpretation(s) Bedside ultrasound shows a left adnexal cyst WBC normal electrolytes unremarkable Differential Diagnosis Differential diagnoses pelvic pain and left ovarian cyst rule out rupture ovarian torsion cervicitis and salpingitis cystitis STD Narrative Course This is a 27-year-old female with a history of polycystic ovarian syndrome who presents to the ER and moderately severe abdominal pain. Patient was hydrated with normal saline given Toradol 30 mg IV. No improvement pain noted. Patient is given 2 mg of morphine IV and 4 mg of of Zofran pain initially 9-10 out of 10 decreased after first dose of analgesic medication. This ultrasound performed which shows a left ovarian cyst. No free fluid noted white cell count normal chemistry and normal pelvic exam shows a whitish discharge. Patient given IV rocephin . Vaginal discharge Possibly physiologic wet prep is negative for clue cells trichomonas or yeast . Official intravaginal ultrasound performed. Ovarian torsion is seen approximately a 2 cm left ovarian cyst noted no free fluid noted. Case discussed with Dr. Matthews TEMPLATE CUTTER on-call plan is to discharge patient on Tylenol 3 and doxycycline. Initially the discharge medicine was going to be Naprosyn however want to give him doxycycline discharge as well and a concomitant effect of Naprosyn and doxycycline may lead to deep GI distress so we will not give naprosyn. Patient to follow-up with Dr. Baugh in the next 48 hours. Patient given reasons to return and verbalized understanding. Procedures Procedure Narrative Bedside ultrasound performed cystic lesions seen in the left adnexa no free fluid appreciated good flow noted no solid masses appreciated official intravaginal ultrasound ordered for confirmation of finding. Diagnosis Primary Impression: Pelvic pain Additional Impressions: Left ovarian cyst Salpingitis Referrals: Tylor Matthews MD Patient Instructions: General Instructions, Narcotic given in the ED, Ovarian Cyst (DC), Pelvic Pain in Women (DC) Additional Instructions: Stay well hydrated Take Tylenol with codeine as needed for pain Finished doxycycline Take diflucan in 3 days to avoid the development of a yeast infection that may result from antibiotic administration Avoid sexual contact for at least 14 days Return if symptoms persist or worsen or if there is fever or chills Follow-up with Dr. Tylor Baugh called the office in the morning to schedule follow-up appointment Med/Other Pt SpecificInfo: Prescription(s) given Scripts Fluconazole (Diflucan)150 Mg [id number] Mg PO ONCE #1 TAB Ref 0 Prov:Shayy Simpson MD 05/18/17 Doxycycline Hyclate 100 Mg [id number] Mg PO BID 14 Days Ref 0 Prov:Shayy Simpson MD 05/18/17 Acetaminophen-Codeine (Tylenol-Codeine #3)300-30 mg Tab1 Tab PO every 6 to every 8 h PRN (PAIN) #15 TAB Ref 0 Prov:Shayy Simpson MD 05/18/17 Disposition: 01 DISCHARGE HOME Condition: Stable Shayy Simpson MD May 18, 2017 18:53
[2017-05-18 19:12] VITALS: BP 116/86
[2017-05-18 22:34] LABS: CHLAMYDIA PCR NOT DETECTED (NOT DETECT); NEISSERIA PCR NOT DETECTED (NOT DETECT)
== END 2017-05-18 19:14 | disposition home or self-care (01) ==
LOC: PHED 12:41
DX: N83.202 Unspecified ovarian cyst, left side (principal); N70.91 Salpingitis, unspecified; E78.00 Pure hypercholesterolemia, unspecified; K21.9 Gastro-esophageal reflux disease without esophagitis; E28.2 Polycystic ovarian syndrome; I10 Essential (primary) hypertension
CPT/HCPCS: 76830; 76856; 80053; 81001; 84703; 85025; 87210; 87491; 87591; 96361; 96365; 96375; 99285; J0696; J1885; J2270; J2405; J3010; J7030

== ENCOUNTER 2017-08-13 10:41 | Emergency (ER) | payer OTHER ==
[~2017-08-13] VITALS: Ht 154.9 cm; Wt 90.0 kg
[~2017-08-13 10:41] MED LIST changes: +DOXY100C PO; -HYDR-3533 PO; +TYLETAB34 PO; -ZOFR4TAB3 SL
[2017-08-13 10:44] VITALS: BP 176/124; PULSE 104; RESP 24; TEMP 98.4; O2SAT 96
[2017-08-13] MEDS ORDERED: TRAZ100T6 PO (10:53)
[2017-08-13] MEDS ORDERED: CLON0.1T PO (10:53)
[2017-08-13 11:15] VITALS: RESP 18; O2SAT 98
[2017-08-13] MEDS ORDERED: ALUMINUM/MAGNESIUM/SIMETH 30 ML CUP PO ONE (11:15)
[2017-08-13] MEDS ORDERED: SODIUM CHLORIDE 0.9% FLUSH 10 ML FLUSH IVF PRN (11:15)
[2017-08-13] MEDS ORDERED: LIDOCAINE VISCOUS 2% SOLN 15 ML UDC PO ONE (11:15)
[2017-08-13] MEDS ORDERED: FAMOTIDINE 20 MG/2 ML VIAL IV PUSH ONE (11:15)
[2017-08-13] MEDS ORDERED: ONDANSETRON HCL 4 MG/2 ML VIAL IVP ONE (11:15)
--- NOTE | 2017-08-13 11:21 | PD ---
HPI Chief Complaint: Chest Pain Time Seen by Provider: 11:01 Travel History International Travel<30 days: No Contact w/Intl Traveler<30days: No Traveled to known affect area: No History of Present Illness HPI Patient is a 27-year-old female who presents emergency room with multiple complaints. Reports that she has history of arrhythmia, reports that for the past 48 hours she has been having constant left-sided chest pain. Reports that she is feeling a sharp and stabbing pain to her left chest. Patient denies sob and diaphoresis at this time. Patient also reports that her grandmother recently , that she has been been binge drinking since then. Reports that for the past 4 days, she has been drinking excessively. Reports that she drinks about 2 pints of vodka per day along with a 6 pack of beer. Reports that she does have history of gastric ulcers. Reports that has been feeling nauseous and has been vomiting, reports that there is spots of bright red blood in her mucous. Reports pain to her left upper abdomen. Denies fever/chills. Patient with no other c/o at this time. PFSH Past Medical History Hx Anticoagulant Therapy: No Arthritis: Yes (rheumatoid arthritis) Autoimmune Disease: Yes Blood Disorders: No Bipolar Disorder: Yes Anxiety: Yes Depression: Yes (OCD) Heart Rhythm Problems: No Cancer: No Cardiovascular Problems: Yes (HTN, CHOL) High Cholesterol: Yes Chemotherapy: No Chest Pain: Yes Congestive Heart Failure: No Cerebrovascular Accident: No Diabetes: No Diminished Hearing: No Endocrine: No Gastrointestinal Disorders: Yes (IBS) GERD: Yes Genitourinary: Yes Headaches: No Hepatitis: No Hiatal Hernia: No Heparin Induced Thrombocytopen: No Hypertension: Yes Immune Disorder: Yes (RA) Implanted Vascular Access Dvce: No Musculoskeletal: Yes (degenerative disc disease) Neurologic: No Psychiatric: Yes (ANXIETY, BIPOLAR) Reproductive: Yes (cyst POLY CYSTIC OVARIAN) Respiratory: Yes (POC) Immunizations Current: Yes Migraines: Yes Pancreatitis: Yes Radiation Therapy: No Schizophrenia: Yes (denies) Seizures: Yes Sickle Cell Disease: No Thyroid Disease: No Ulcer: No PNEUMOCCOCAL Vaccine (Year): 2 ?: Not LMP: has mirena : 1 Para: 1 Miscarriage: 0 : 0 Ovarian Cysts: Yes (PCOS) Past Surgical History Abdominal Surgery: No AICD: No Body Medical Devices: IUD, SCREWS IN BACK Cardiac Surgery: No Section: Yes (2007) Ear Surgery: No Endocrine Surgery: No Eye Surgery: No Genitourinary Surgery: No Gynecologic Surgery: Yes ( 08) Joint Replacement: No Neurologic Surgery: Yes (L4, L5, S1 SEMICONTRAINT DEVICE/FUSION) Oral Surgery: Yes (TMJ PROCEDURE) Pacemaker: No Thoracic Surgery: No Other Surgery: Yes (endoscopy colonoscopy) Social History Alcohol Use: Yes (daily x 4 days/ 2 pints vodka and a 4 pack of beer high gravity) Tobacco Use: Yes Substance Use: No Allergies-Medications (Allergen,Severity, Reaction): Coded Allergies: paroxetine (Unverified Allergy, Severe, UNKNOWN, 08/13/17) Reported Meds & Prescriptions Reported Meds & Active Scripts Active Ativan (Lorazepam) 0.5 Mg Tab 0.5 Mg PO Q6H PRN Zofran (Ondansetron HCl) 4 Mg Tab 4 Mg PO Q6HR PRN Reported Trazodone (Trazodone HCl) 100 Mg Tablet 100 Mg PO HS Clonidine (Clonidine HCl) 0.1 Mg Tab 0.1 Mg PO BID [place] Carbonate 150 Mg Cap 150 Mg PO BID Omeprazole 40 Mg Cap 40 Mg PO DAILY Atenolol 100 Mg Tab 100 Mg PO DAILY Vistaril (Hydroxyzine Pamoate) 50 Mg Cap 50 Mg PO QID PRN Latuda (Lurasidone) 60 Mg Tab 60 Mg PO DAILY Review of Systems General / Constitutional: No: Fever, Chills Eyes: No: Visual changes HENT: No: Headaches Cardiovascular: Positive: Chest Pain or Discomfort, Palpitations, Tachycardia Respiratory: No: Shortness of Breath Gastrointestinal: Positive: Nausea, Vomiting, Abdominal Pain, Hematemesis Genitourinary: No: Dysuria Musculoskeletal: No: Pain Skin: No Rash Neurologic: No: Weakness Psychiatric: No: Depression Endocrine: No: Polydipsia Hematologic/Lymphatic: No: Easy Bruising Physical Exam Narrative GENERAL: mild distress SKIN: Focused skin assessment warm/dry. HEAD: Atraumatic. Normocephalic. EYES: Pupils equal and round. No scleral icterus. No injection or drainage. ENT: No nasal bleeding or discharge. Mucous membranes pink and moist. NECK: Trachea midline. No JVD. CARDIOVASCULAR: Regular rate and rhythm. No murmur appreciated. RESPIRATORY: No accessory muscle use. Clear to auscultation. Breath sounds equal bilaterally. GASTROINTESTINAL: Abdomen soft, mild tenderness to left upper abdomen. nondistended. Hepatic and splenic margins not palpable. MUSCULOSKELETAL: No obvious deformities. No clubbing. No cyanosis. No edema. NEUROLOGICAL: Awake and alert. No obvious cranial nerve deficits. Motor grossly within normal limits. Normal speech. PSYCHIATRIC: Anxious mood and affect; insight and judgment normal. Data Data Last Documented VS Vital Signs Date Time Temp Pulse Resp B/P (MAP) Pulse Ox O2 Delivery O2 Flow Rate FiO2 08/13/17 14:00 109 16 163/106 (125) 97 Room Air 08/13/17 10:44 98.4 Orders Orders Electrocardiogram (08/13/17 11:01) Ed Urine Pregnancytest Poc (08/13/17 11:01) Ckmb (Isoenzyme) Profile (08/13/17 11:11) Complete Blood Count With Diff (08/13/17 11:11) Comprehensive Metabolic Panel (08/13/17 11:11) Magnesium (Mg) (08/13/17 11:11) Prothrombin Time / Inr (Pt) (08/13/17 11:11) Act Partial Throm Time (Ptt) (08/13/17 11:11) Troponin I (08/13/17 11:11) Lipase (08/13/17 11:11) Chest, Single Ap (08/13/17 11:11) Ecg Monitoring (08/13/17 11:11) Iv Access Insert/Monitor (08/13/17 11:11) Oximetry (08/13/17 11:11) Sodium Chloride 0.9% Flush (Ns Flush) (08/13/17 11:15) Ondansetron Inj (Zofran Inj) (08/13/17 11:15) Famotidine Inj (Pepcid Inj) (08/13/17 11:15) Al-Mag Hy-Si 40-40-4 Mg/Ml Liq (Mag-Al P (08/13/17 11:15) Lidocaine 2% Viscous (Xylocaine 2% Visco (08/13/17 11:15) Ketorolac Inj (Toradol Inj) (08/13/17 12:15) CKMB (08/13/17 11:24) CKMB% (08/13/17 11:24) Potassium Chloride (Kcl) (08/13/17 14:15) Lorazepam Inj (Ativan Inj) (08/13/17 14:30) Sodium Chlor 0.9% 1000 Ml Inj (Ns 1000 M (08/13/17 14:30) Troponin I (08/13/17 16:00) Labs Laboratory Tests Test 08/13/17 11:24 White Blood Count 8.2 TH/MM3 Red Blood Count 5.01 MIL/MM3 Hemoglobin 14.4 GM/DL Hematocrit 42.6 % Mean Corpuscular Volume 85.1 FL Mean Corpuscular Hemoglobin 28.7 PG Mean Corpuscular Hemoglobin Concent 33.7 % Red Cell Distribution Width 13.4 % Platelet Count 170 TH/MM3 Mean Platelet Volume 8.3 FL Neutrophils (%) (Auto) 64.4 % Lymphocytes (%) (Auto) 28.2 % Monocytes (%) (Auto) 5.6 % Eosinophils (%) (Auto) 0.9 % Basophils (%) (Auto) 0.9 % Neutrophils # (Auto) 5.3 TH/MM3 Lymphocytes # (Auto) 2.3 TH/MM3 Monocytes # (Auto) 0.5 TH/MM3 Eosinophils # (Auto) 0.1 TH/MM3 Basophils # (Auto) 0.1 TH/MM3 CBC Comment DIFF FINAL Differential Comment Prothrombin Time 11.4 SEC Prothromb Time International Ratio 1.0 RATIO Activated Partial Thromboplast Time 28.0 SEC Blood Urea Nitrogen 4 MG/DL Creatinine 0.44 MG/DL Random Glucose 101 MG/DL Total Protein 7.6 GM/DL Albumin 3.7 GM/DL Calcium Level 8.5 MG/DL Magnesium Level 1.7 MG/DL Alkaline Phosphatase 66 U/L Aspartate Amino Transf (AST/SGOT) 165 U/L Alanine Aminotransferase (ALT/SGPT) 168 U/L Total Bilirubin 0.9 MG/DL Sodium Level 136 MEQ/L Potassium Level 3.4 MEQ/L Chloride Level 101 MEQ/L Carbon Dioxide Level 22.5 MEQ/L Anion Gap 13 MEQ/L Estimat Glomerular Filtration Rate 169 ML/MIN Total Creatine Kinase 244 U/L Creatine Kinase MB 1.3 NG/ML Creatine Kinase MB % 0.5 % Troponin I LESS THAN 0.02 NG/ML Lipase 121 U/L MDM Medical Decision Making Medical Screen Exam Complete: Yes Emergency Medical Condition: Yes Interpretation(s) EKG at 1114: Sinus tachycardia at 105bpm, qt/qtc: 356/417, no acute st or t wave changes Vital Signs Date Time Temp Pulse Resp B/P (MAP) Pulse Ox O2 Delivery O2 Flow Rate FiO2 08/13/17 10:44 98.4 104 24 176/124 (141) 96 Room Air Differential Diagnosis Differential includes ACS, arrhythmia, gastritis, gastric ulcer, electrolyte abnormality, pancreatitis Narrative Course Patient is a 27-year-old female who presents to emergency with multiple complaints. Patient reports that her grandmother recently , reports that for the past 4 days, she has been binge drinking and drinking excessively. Reports that for the past 2 days, she has been having left sided chest pain as well as abdominal pain. Reports that chest pain feels sharp and stabbing in nature. Patient was placed on a test worker upon arrival to the emergency room, EKG shows sinus tachycardia at 105 beats a minute, patient with no acute ST-T wave changes. Lab work including 1 set of cardiac enzymes ordered to rule out infectious etiology of chest pain including but not limited to endocarditis or pericarditis. LFTs ordered to evaluate for possible pancreatitis.. Plan to give IVF, antiemetics, Will monitor patient Vital Signs Date Time Temp Pulse Resp B/P (MAP) Pulse Ox O2 Delivery O2 Flow Rate FiO2 08/13/17 11:15 18 98 Room Air 08/13/17 11:11 114 20 97 08/13/17 10:44 98.4 104 24 176/124 (141) 96 Room Air Laboratory Tests Test 08/13/17 11:24 White Blood Count 8.2 TH/MM3 (4.0-11.0) Red Blood Count 5.01 MIL/MM3 (4.00-5.30) Hemoglobin 14.4 GM/DL (11.6-15.3) Hematocrit 42.6 % (35.0-46.0) Mean Corpuscular Volume 85.1 FL (80.0-100.0) Mean Corpuscular Hemoglobin 28.7 PG (27.0-34.0) Mean Corpuscular Hemoglobin Concent 33.7 % (32.0-36.0) Red Cell Distribution Width 13.4 % (11.6-17.2) Platelet Count 170 TH/MM3 (150-450) Mean Platelet Volume 8.3 FL (7.0-11.0) Neutrophils (%) (Auto) 64.4 % (16.0-70.0) Lymphocytes (%) (Auto) 28.2 % (9.0-44.0) Monocytes (%) (Auto) 5.6 % (0.0-8.0) Eosinophils (%) (Auto) 0.9 % (0.0-4.0) Basophils (%) (Auto) 0.9 % (0.0-2.0) Neutrophils # (Auto) 5.3 TH/MM3 (1.8-7.7) Lymphocytes # (Auto) 2.3 TH/MM3 (1.0-4.8) Monocytes # (Auto) 0.5 TH/MM3 (0-0.9) Eosinophils # (Auto) 0.1 TH/MM3 (0-0.4) Basophils # (Auto) 0.1 TH/MM3 (0-0.2) CBC Comment DIFF FINAL Differential Comment Prothrombin Time 11.4 SEC (9.8-11.6) Prothromb Time International Ratio 1.0 RATIO Activated Partial Thromboplast Time 28.0 SEC (24.3-30.1) Blood Urea Nitrogen 4 MG/DL (7-18) Creatinine 0.44 MG/DL (0.50-1.00) Random Glucose 101 MG/DL (74-106) Total Protein 7.6 GM/DL (6.4-8.2) Albumin 3.7 GM/DL (3.4-5.0) Calcium Level 8.5 MG/DL (8.5-10.1) Magnesium Level 1.7 MG/DL (1.5-2.5) Alkaline Phosphatase 66 U/L (45-117) Aspartate Amino Transf (AST/SGOT) 165 U/L (15-37) Alanine Aminotransferase (ALT/SGPT) 168 U/L (10-53) Total Bilirubin 0.9 MG/DL (0.2-1.0) Sodium Level 136 MEQ/L (136-145) Potassium Level 3.4 MEQ/L (3.5-5.1) Chloride Level 101 MEQ/L (98-107) Carbon Dioxide Level 22.5 MEQ/L (21.0-32.0) Anion Gap 13 MEQ/L (5-15) Estimat Glomerular Filtration Rate 169 ML/MIN (>89) Total Creatine Kinase 244 U/L (26-192) Creatine Kinase MB 1.3 NG/ML (0.5-3.6) Creatine Kinase MB % 0.5 % (0.0-4.0) Troponin I LESS THAN 0.02 NG/ML Lipase 121 U/L (73-393) Last Impressions Chest X-Ray 08/13/17 1111 Signed Impressions: Service Date/Time: Sunday, August 13, 2017 11:28 - CONCLUSION: No acute cardiopulmonary abnormality is identified. Tylor Galindo MD Patient reevaluated, patient now admits that she is an alcoholic and feels shakey because she is going through withdrawal symptoms. Patient requesting ativan at this time. Patient feeling much better after ativan administer. HR now 98. Discussed need to attend AA meetings. She will follow up with her pcp and will return to ER as needed Diagnosis Primary Impression: Alcohol withdrawal Qualified Codes: F10.230 - Alcohol dependence with withdrawal, uncomplicated Additional Impressions: Alcohol abuse Chest pain Qualified Codes: R07.9 - Chest pain, unspecified Nausea & vomiting Qualified Codes: R11.2 - Nausea with vomiting, unspecified Transaminitis Patient Instructions: General Instructions Additional Instructions: Please drink alcohol responsibility Please follow up with your primary care doctor Return to ER as needed Return to ER if symptoms progress or worsen Do not drive while taking ativan Med/Other Pt SpecificInfo: Prescription(s) given Scripts Lorazepam (Ativan) 0.5 Mg Tab 0.5 MG PO Q6H Y for WITHDRAWAL, #6 TAB 0 Refills Prov: Ghislaine Gray DO 08/13/17 Ondansetron (Zofran) 4 Mg Tab 4 MG PO Q6HR Y for NAUSEA OR VOMITING, #20 TAB 0 Refills Prov: Ghislaine Gray DO 08/13/17 Disposition: 01 DISCHARGE HOME Condition: Stable Ghislaine Gray DO Aug 13, 2017 11:21
[2017-08-13 11:41] LABS: AUTOMATED NEUTROPHIL # 5.3 TH/MM3 (1.8-7.7); BASOPHIL # 0.1 TH/MM3 (0-0.2); BASOPHIL % 0.9 % (0.0-2.0); EOSINOPHIL # 0.1 TH/MM3 (0-0.4); EOSINOPHIL % 0.9 % (0.0-4.0); HEMATOCRIT 42.6 % (35.0-46.0); HEMO FLAGS DIFF FINAL; LYMPH % 28.2 % (9.0-44.0); LYMPHOCYTE # 2.3 TH/MM3 (1.0-4.8); MEAN CELL VOLUME 85.1 FL (80.0-100.0); MEAN CORPUSCULAR HEMOGLOBIN 28.7 PG (27.0-34.0); MEAN CORPUSCULAR HGB CONC 33.7 % (32.0-36.0); MONO % 5.6 % (0.0-8.0); NEUT % 64.4 % (16.0-70.0); PLATELET COUNT 170 TH/MM3 (150-450); RED BLOOD COUNT 5.01 MIL/MM3 (4.00-5.30); RED CELL DISTRIBUTION WIDTH 13.4 % (11.6-17.2); WHITE BLOOD COUNT 8.2 TH/MM3 (4.0-11.0)
[2017-08-13 11:53] LABS: PROTHROMBIN TIME - PATIENT 11.4 SEC (9.8-11.6)
--- NOTE | 2017-08-13 11:55 | RADRPT ---
EXAM DATE/TIME: 08/13/2017 11:28 [facility] COMPARISON: CHEST SINGLE AP, December 22, 2015, 8:41. INDICATIONS : Left sided chest pain radiating down left arm with hematemesis. MEDICAL HISTORY : Arythmia. SURGICAL HISTORY : None. ENCOUNTER: Initial ACUITY: 1 day PAIN SCORE: 6/10 LOCATION: Left chest FINDINGS: Portable AP view of the chest demonstrates a normal-sized cardiac silhouette. No effusion, consolidat ion, or pneumothorax is visualized. The bones and soft tissues demonstrate no acute abnormality. CONCLUSION: No acute cardiopulmonary abnormality is identified. Tylor Galindo MD on August 13, 2017 at 11:54 Board Certified Radiologist. This report was verified electronically.
[2017-08-13 12:00] VITALS: BP 171/110; PULSE 114; RESP 18; O2SAT 97
[2017-08-13] MEDS ORDERED: KETOROLAC TROMETHAMINE 30 MG/ML (IVP) VIAL IV PUSH ONE (12:15)
[2017-08-13 12:55] LABS: ANION GAP 13 MEQ/L (5-15); AST (GOT) 165 U/L (15-37); BICARBONATE 22.5 MEQ/L (21.0-32.0); BLOOD UREA NITROGEN 4 MG/DL (7-18); CHLORIDE 101 MEQ/L (98-107); GLOMERULAR FILTRATION RATE 169 ML/MIN (>89); MAGNESIUM 1.7 MG/DL (1.5-2.5); POTASSIUM 3.4 MEQ/L (3.5-5.1); SODIUM (NA) 136 MEQ/L (136-145)
[2017-08-13 12:56] LABS: ALT (GPT) 168 U/L (10-53)
[2017-08-13 13:00] VITALS: BP 159/58; PULSE 116; RESP 18; O2SAT 96
[2017-08-13 13:00] LABS: ALKALINE PHOSPHATASE 66 U/L (45-117); CREATINE KINASE 244 U/L (26-192); TOTAL BILIRUBIN ADULT 0.9 MG/DL (0.2-1.0)
[2017-08-13 13:12] LABS: CKMB 1.3 NG/ML (0.5-3.6)
[2017-08-13 14:00] VITALS: BP 163/106; PULSE 109; RESP 16; O2SAT 97
[2017-08-13] MEDS ORDERED: ZOFR4TAB PO (14:00)
[2017-08-13] MEDS ORDERED: POTASSIUM CHLORIDE 10 MEQ CONTROLLED RELEASE TAB PO ONE (14:15)
[2017-08-13] MEDS ORDERED: LORazepam 2 MG/ML VIAL IV PUSH ONE (14:30)
[2017-08-13] MEDS ORDERED: SODIUM CHLOR 0.9% 1000 ML INJ 1,000 ML IV ONE (14:30)
[2017-08-13] MEDS ORDERED: LORA-392 PO (16:14)
[2017-08-13 17:11] VITALS: BP 146/95; PULSE 102; RESP 18; O2SAT 96
--- NOTE | 2017-08-14 13:07 | EKG ---
Date Performed: 08/13/2017 Time Performed: 11:14:35 PTAGE: 27 years EKG: SINUS TACHYCARDIA ABNORMAL RHYTHM ECG PREVIOUS TRACING : 09/26/2016 13.52 Since previous tracing, T-waves have slightly improved. DOCTOR: Sarwat Saavedra Interpretating Date/Time 08/14/2017 13:06:04
== END 2017-08-13 17:35 | disposition home or self-care (01) ==
LOC: NEPE 10:41
DX: F10.230 Alcohol dependence with withdrawal, uncomplicated (principal); F10.10 Alcohol abuse, uncomplicated; R07.9 Chest pain, unspecified; R94.31 Abnormal electrocardiogram [ECG] [EKG]; R11.2 Nausea with vomiting, unspecified; M06.9 Rheumatoid arthritis, unspecified; I10 Essential (primary) hypertension; Z72.0 Tobacco use
CPT/HCPCS: 71010; 80053; 82550; 82552; 83690; 83735; 84484; 84703; 85025; 85610; 85730; 93005; 96361; 96374; 96375; 99285; J1885; J2060; J2405; J7030

== ENCOUNTER 2017-12-07 17:16 | Emergency (ER) | payer OTHER ==
[~2017-12-07] VITALS: Ht 154.9 cm; Wt 93.6 kg
[~2017-12-07 17:16] MED LIST changes: +CLON0.1T PO; -DIFL150T PO; -DOXE25CA2 PO; -DOXY100C PO; +LORA-392 PO; +TERC.4%V VAGINAL; +TRAZ100T10 PO; -TYLETAB34 PO; +ZOFR4TAB PO
[2017-12-07 17:19] VITALS: BP 186/100; PULSE 130; RESP 26; TEMP 99.8; O2SAT 98
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
[2017-12-07 18:40] LABS: BACTERIA, URINE FEW /hpf; BILIRUBIN, URINE NEG (NEG); BLOOD, URINE TRACE (NEG); GLUCOSE,URINE NEG (NEG); KETONE, URINE 10 mg/dL (NEG); NITRITE,URINE NEG (NEG); PH, URINE 5.5 (5.0-8.5); SQUAMOUS EPITHELIAL CELL URINE 3 /hpf (0-5); URINE COLOR YELLOW (YELLW/STRAW); URINE LEUKOCYTE ESTERASE NEG (NEG)
[2017-12-07 18:48] LABS: INTERNATIONAL NORMALIZED RATIO 1.1 RATIO; PROTHROMBIN TIME - PATIENT 10.7 SEC (9.8-11.6)
[2017-12-07 18:52] LABS: ALBUMIN 4.7 GM/DL (3.4-5.0); AST (GOT) 58 U/L (15-37); BLOOD UREA NITROGEN 14 MG/DL (7-18); CALCIUM 10.1 MG/DL (8.5-10.1); CHLORIDE 97 MEQ/L (98-107); GLOMERULAR FILTRATION RATE 85 ML/MIN (>89); GLUCOSE,RANDOM 86 MG/DL (74-106); LIPASE 64 U/L (73-393); SODIUM (NA) 132 MEQ/L (136-145)
[2017-12-07 18:53] LABS: ALT (GPT) 79 U/L (10-53)
[2017-12-07 18:55] LABS: ALKALINE PHOSPHATASE 71 U/L (45-117); TOTAL BILIRUBIN ADULT 1.8 MG/DL (0.2-1.0); TOTAL PROTEIN 9.4 GM/DL (6.4-8.2)
[2017-12-07] MEDS ORDERED: ATENOLOL 100 MG TAB PO ONE (20:00)
[2017-12-07] MEDS ORDERED: ATEN100T PO (20:02)
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
[2017-12-07] MEDS ORDERED: IBUPROFEN 600 MG TAB PO ONE (20:15)
[2017-12-07 20:55] LABS: BASOPHIL # 0.1 TH/MM3 (0-0.2); BASOPHIL % 0.7 % (0.0-2.0); EOSINOPHIL # 0.3 TH/MM3 (0-0.4); EOSINOPHIL % 2.3 % (0.0-4.0); HEMATOCRIT 43.7 % (35.0-46.0); HEMOGLOBIN 14.9 GM/DL (11.6-15.3); LYMPH % 39.8 % (9.0-44.0); MEAN CELL VOLUME 85.1 FL (80.0-100.0); MEAN CORPUSCULAR HGB CONC 34.1 % (32.0-36.0); MEAN PLATELET VOLUME 8.2 FL (7.0-11.0); NEUT % 49.2 % (16.0-70.0); RED BLOOD COUNT 5.13 MIL/MM3 (4.00-5.30); RED CELL DISTRIBUTION WIDTH 13.4 % (11.6-17.2)
[2017-12-07 20:57] LABS: PLATELET COUNT 349 TH/MM3 (150-450); WHITE BLOOD COUNT 12.5 TH/MM3 (4.0-11.0)
[2017-12-07 21:00] LABS: AUTOMATED NEUTROPHIL # 6.2 TH/MM3 (1.8-7.7)
[2017-12-07] MEDS ORDERED: LIDOCAINE VISCOUS 2% SOLN 15 ML UDC SWISH-SWAL ONE (21:15)
[2017-12-07] MEDS ORDERED: ALUMINUM/MAGNESIUM/SIMETH 30 ML CUP PO ONE (21:15)
[2017-12-07] MEDS ORDERED: diphenhydrAMINE HCL ELIXIR 12.5 MG/5 ML CUP PO ONE (21:15)
[2017-12-07] MEDS ORDERED: ONDANSETRON ODT 4 MG TAB PO ONE (22:00)
[2017-12-07] MEDS ORDERED: FAMOTIDINE 20 MG TAB PO ONE (22:00)
[2017-12-07 22:15] LABS: BASOPHILS 2 % (0-2); LYMPHOCYTES 42 % (9-44); MONOCYTES 5 % (0-8); NEUTROPHIL # MANUAL DIFF 6.4 TH/MM3 (1.8-7.7); POLYS (SEG NEUTROPHILS) 51 % (16-70)
[2017-12-07] MEDS ORDERED: CARA1SUS3 PO (22:36)
[2017-12-07] MEDS ORDERED: FAMO1TAB73 PO (22:36)
[2017-12-07] MEDS ORDERED: ZOFR8TAB4 SL (22:36)
[2017-12-07 22:48] VITALS: BP 122/74; PULSE 89
== END 2017-12-07 22:52 | disposition home or self-care (01) ==
LOC: NEPD 17:16
DX: S20.219A Contusion of unspecified front wall of thorax, initial encounter (principal); R11.2 Nausea with vomiting, unspecified; I10 Essential (primary) hypertension; R00.0 Tachycardia, unspecified; R09.89 Other specified symptoms and signs involving the circulatory and respiratory systems; R05 Cough; R09.81 Nasal congestion; M06.9 Rheumatoid arthritis, unspecified; Y04.2XXA Assault by strike against or bumped into by another person, initial encounter
CPT/HCPCS: 71046; 80053; 81001; 83690; 84703; 85007; 85027; 85610; 85730; 87804; 99284

== ENCOUNTER 2018-06-15 01:10 | Inpatient (IN) ==
--- NOTE | 2018-06-15 01:37 | ED ---
HPI General Chief complaint: Psychiatric Symptoms Stated complaint: vol psych eval/dr sent Time Seen by Provider: 06/15/18 01:35 History of Present Illness HPI narrative: This is a 28-year-old female with history of bipolar disorder, PTSD and anxiety. She presents for evaluation of anxiety, depression and passive suicidal thoughts. Symptoms have been progressing over the past month. She reports that she has been having a lot of social stressors over the past 6 months. Today she called her primary care physician who recommend that she come to the emergency room. She denies any drug use. She reports occasional alcohol use. She reports passive suicidal thoughts that she believes that she is a burden to others but she does not think that she would never act on these thoughts. Symptoms are moderate. She has been using her medications as prescribed. She is followed at [facility] for psychiatric care. No other complaints. Related Data Home Medications Medication Instructions Recorded Confirmed atenolol 100 mg PO DAILY 06/15/18 06/15/18 clonidine HCl 0.1 mg PO BID 06/15/18 06/15/18 hydromorphone 2 mg PO Q4-6H PRN 06/15/18 06/15/18 lithium carbonate 100 mg PO BID 06/15/18 06/15/18 omeprazole magnesium [Prilosec OTC] 40 mg PO DAILY 06/15/18 06/15/18 Allergies Allergy/AdvReac Type Severity Reaction Status Date / Time paroxetine Allergy Severe UNKNOWN Unverified 12/07/17 19:53 Review of Systems Except as stated in HPI: all other systems reviewed are negative PMFSH Medical History Medical History Anxiety (Acute) Bipolar disorder (Acute) delivery delivered (Acute) Degenerative disc disease (Acute) History of IBS (Acute) PTSD (post-traumatic stress disorder) (Acute) Rheumatoid arthritis (Acute) Surgical History Surgical History H/O spinal fusion (Acute) History of mandibular surgery (Acute) Social History Social History Substance History: No History of Abuse Second Hand Smoke Exposure: Yes Smoking Status: Current every day smoker Tobacco Type: Cigarettes How Often Do You Have a Drink Containing Alcohol: 2 to 3 times a week Recent Travel in [facility] within the Last 8 Weeks: No Recent Out of Country Travel within the Last 8 Weeks: No Exam Narrative Exam Narrative: GENERAL: This is a well-developed well-nourished female who appears anxious. SKIN: Warm and dry. HEAD: Atraumatic. Normocephalic. EYES: Pupils equal and round. No scleral icterus. No injection or drainage. ENT: No nasal bleeding or discharge. Mucous membranes pink and moist. NECK: Trachea midline. No JVD. CARDIOVASCULAR: Regular rate and rhythm. No murmur appreciated. RESPIRATORY: No accessory muscle use. Clear to auscultation. Breath sounds equal bilaterally. GASTROINTESTINAL: Abdomen soft, non-tender, nondistended. Hepatic and splenic margins not palpable. MUSCULOSKELETAL: No obvious deformities. No clubbing. No cyanosis. No edema. NEUROLOGICAL: Awake and alert. No obvious cranial nerve deficits. Motor grossly within normal limits. Normal speech. PSYCHIATRIC: Anxious, depressed mood; insight and judgment normal. Course Initial Documented Vital Signs Temperature 98.5 F 06/15/18 01:13 Pulse Rate 110 H 06/15/18 01:13 Respiratory Rate 21 06/15/18 01:13 Blood Pressure 151/96 H 06/15/18 01:13 Pulse Oximetry 96 06/15/18 01:13 Last Documented Vital Signs Temperature 98.5 F 06/15/18 01:13 Pulse Rate 110 H 06/15/18 01:13 Respiratory Rate 21 06/15/18 01:13 Blood Pressure 151/96 H 06/15/18 01:13 Pulse Oximetry 96 06/15/18 01:13 Medical Decision Making MDM Narrative Medical decision making narrative: Mental health screening discussed with the patient. Psychiatric screen ordered. 1 mg Ativan ordered for anxiety. Lab work has been reviewed, notable for positive cocaine on toxicology and alcohol level of 130. The patient is medically cleared. Differential Diagnosis Differential Diagnosis: Major depressive disorder, acute psychosis, adjustment reaction, generalized anxiety disorder, bipolar disorder, substance-induced mood disorder Lab Data Result diagrams: 06/15/18 02:50 06/15/18 02:05 Lab Results 06/15/18 06/15/18 06/15/18 Range/Units 02:05 02:05 02:05 WBC (4.0-11.0) th/mm3 RBC (4.00-5.30) mil/mm3 Hgb (11.6-15.3) gm/dL Hct (35.0-46.0) % MCV (80.0-100.0) fL MCH (27.0-34.0) pg MCHC (32.0-36.0) % RDW (11.6-17.2) % Plt Count (150-450) th/mm3 MPV (7.0-11.0) fL Prelim Diff (Auto) Neut % (Auto) (16.0-70.0) % Lymph % (Auto) (9.0-44.0) % [place] % (Auto) (0.0-8.0) % Eos % (Auto) (0.0-4.0) % Baso % (Auto) (0.0-2.0) % Neut # (Auto) (1.8-7.7) th/mm3 Lymph # (Auto) (1.0-4.8) th/mm3 [place] # (Auto) (0.0-0.9) th/mm3 Eos # (Auto) (0.0-0.4) th/mm3 Baso # (Auto) (0.0-0.2) th/mm3 WBC Differential Diff Scan Differential Comment Platelet Estimate (Normal) Platelet Morphology (Normal) Sodium 141 (136-145) meq/L Potassium 3.8 (3.5-5.1) meq/L Chloride 109 H (98-107) meq/L Carbon Dioxide 22.5 (21.0-32.0) meq/L Anion Gap 10 (5-15) meq/L BUN 6 L (7-18) mg/dL Creatinine 0.55 (0.50-1.00) mg/dL Estimated GFR Greater than 89 (>89) mL/min Random Glucose 98 (74-106) mg/dL Calcium 8.7 (8.5-10.1) mg/dL Total Bilirubin 0.5 (0.2-1.0) mg/dL AST 30 (15-37) U/L ALT 44 (10-53) U/L Alkaline Phosphatase 59 (45-117) U/L Total Protein 7.6 (6.4-8.2) g/dL Albumin 3.9 (3.4-5.0) g/dL TSH 1.380 (0.358-3.740) uIU/mL Urine Opiates Screen Neg (Neg) Ur Barbiturates Screen Neg (Neg) Ur Amphetamines Screen Neg (Neg) U Benzodiazepines Scrn Neg (Neg) [place] 0.1 L (0.5-1.5) meq/L Urine Cocaine Screen Pos H (Neg) U Cannabinoids Screen Neg (Neg) Serum Alcohol 130 H (0-5) mg/dL 06/15/18 Range/Units 02:50 WBC 7.6 (4.0-11.0) th/mm3 RBC 4.19 (4.00-5.30) mil/mm3 Hgb 12.9 (11.6-15.3) gm/dL Hct 37.3 (35.0-46.0) % MCV 89.0 (80.0-100.0) fL MCH 30.8 (27.0-34.0) pg MCHC 34.7 (32.0-36.0) % RDW 13.1 (11.6-17.2) % Plt Count 326 (150-450) th/mm3 MPV 6.6 L (7.0-11.0) fL Prelim Diff (Auto) Slide review pending Neut % (Auto) 48.5 (16.0-70.0) % Lymph % (Auto) 41.9 (9.0-44.0) % [place] % (Auto) 5.8 (0.0-8.0) % Eos % (Auto) 3.0 (0.0-4.0) % Baso % (Auto) 0.8 (0.0-2.0) % Neut # (Auto) 3.9 (1.8-7.7) th/mm3 Lymph # (Auto) 3.3 (1.0-4.8) th/mm3 [place] # (Auto) 0.5 (0.0-0.9) th/mm3 Eos # (Auto) 0.2 (0.0-0.4) th/mm3 Baso # (Auto) 0.1 (0.0-0.2) th/mm3 WBC Differential . Diff Scan Auto diff confirmed Differential Comment . Platelet Estimate Normal (Normal) Platelet Morphology Clumped H (Normal) Sodium (136-145) meq/L Potassium (3.5-5.1) meq/L Chloride (98-107) meq/L Carbon Dioxide (21.0-32.0) meq/L Anion Gap (5-15) meq/L BUN (7-18) mg/dL Creatinine (0.50-1.00) mg/dL Estimated GFR (>89) mL/min Random Glucose (74-106) mg/dL Calcium (8.5-10.1) mg/dL Total Bilirubin (0.2-1.0) mg/dL AST (15-37) U/L ALT (10-53) U/L Alkaline Phosphatase (45-117) U/L Total Protein (6.4-8.2) g/dL Albumin (3.4-5.0) g/dL TSH (0.358-3.740) uIU/mL Urine Opiates Screen (Neg) Ur Barbiturates Screen (Neg) Ur Amphetamines Screen (Neg) U Benzodiazepines Scrn (Neg) [place] (0.5-1.5) meq/L Urine Cocaine Screen (Neg) U Cannabinoids Screen (Neg) Serum Alcohol (0-5) mg/dL Discharge Plan Discharge Disposition Patient Disposition: 30 Still Patient Discharge Condition Condition: Stable Discharge Details Diagnosis: Encounter for medical clearance for patient hold Physicians Team ED Provider: Lucas Keith ED Midlevel Provider: Kolton Rose Primary Care Provider: Primary Care Leslie Marques Rxs /Orders / Referrals /Forms Prescriptions: No Action clonidine HCl 0.1 mg Tablet 0.1 mg PO BID RF: 0 atenolol 100 mg Tablet 100 mg PO DAILY RF: 0 lithium carbonate 150 mg Capsule 100 mg PO BID RF: 0 hydromorphone 2 mg Tablet 2 mg PO Q4-6H PRN (Reason: polycystic ovarian cysts) RF: 0 omeprazole magnesium [Prilosec OTC] 20 mg Tablet,Delayed Release (Dr/Ec) 40 mg PO DAILY RF: 0 Discharge Interventions Interventions: Vital Signs Last Done: 06/15/18 01:37 Status ED Status: Medically Cleared
[2018-06-15 02:26] LABS: Amphetamine Screen,Urine Neg (Neg); Barbiturate Screen,Urine Neg (Neg); Cannabinoid Screen,Urine Neg (Neg); Cocaine Screen,Urine Pos (Neg)
[2018-06-15 02:41] LABS: Opiate Screen,Urine Neg (Neg)
[2018-06-15 02:42] LABS: Alanine Aminotransferase 44 U/L (10-53); Albumin 3.9 g/dL (3.4-5.0); Anion Gap 10 meq/L (5-15); Aspartate Aminotransferase 30 U/L (15-37); Blood Urea Nitrogen 6 mg/dL (7-18); Calcium 8.7 mg/dL (8.5-10.1); Carbon Dioxide 22.5 meq/L (21.0-32.0); Chloride 109 meq/L (98-107); Glomerular Filtration Rate Greater Than 89 mL/min (>89); Glucose,Random 98 mg/dL (74-106); Potassium 3.8 meq/L (3.5-5.1); Sodium 141 meq/L (136-145)
[2018-06-15 02:45] LABS: Alcohol 130 mg/dL (0-5)
[2018-06-15 02:51] LABS: Alkaline Phosphatase 59 U/L (45-117); Total Protein 7.6 g/dL (6.4-8.2)
[2018-06-15 03:32] LABS: Baso # (Auto) 0.1 th/mm3 (0.0-0.2); Baso % (Auto) 0.8 % (0.0-2.0); Eos # (Auto) 0.2 th/mm3 (0.0-0.4); Hematocrit 37.3 % (35.0-46.0); Hemoglobin 12.9 gm/dL (11.6-15.3); Lymph # (Auto) 3.3 th/mm3 (1.0-4.8); Lymph % (Auto) 41.9 % (9.0-44.0); Mean Corpuscular HGB Conc 34.7 % (32.0-36.0); Mean Corpuscular Hemoglobin 30.8 pg (27.0-34.0); Mono # (Auto) 0.5 th/mm3 (0.0-0.9); Mono % (Auto) 5.8 % (0.0-8.0); Neut # (Auto) 3.9 th/mm3 (1.8-7.7); Neut % (Auto) 48.5 % (16.0-70.0); Red Blood Count 4.19 mil/mm3 (4.00-5.30); Red Cell Distribution Width 13.1 % (11.6-17.2)
[2018-06-15 03:33] LABS: White Blood Count 7.6 th/mm3 (4.0-11.0)
[2018-06-15 03:34] LABS: Mean Platelet Volume 6.6 fL (7.0-11.0); Platelet Count 326 th/mm3 (150-450)
[2018-06-15 04:16] LABS: Platelet Estimate Normal (Normal); Platelet Morphology Clumped (Normal)
[2018-06-15] MEDS ORDERED: LORazepam 1 MG Tablet PO ONE ×2 (07:24→17:12)
[2018-06-15] MEDS ORDERED: Atenolol 100 MG Tablet PO ONE (15:39)
[2018-06-15] MEDS ORDERED: Aluminum/Magnesium/Simethacone Susp 30 ML UDC PO PRN (17:00)
--- NOTE | 2018-06-15 17:42 | ED ---
HPI - Psych - General Source: patient Mode of arrival: ambulatory Limitations: no limitations - History of Present Illness MD complaint: suicidal ideation Onset (ago): day(s) Duration: intermittent History of same: Yes Relieving factors: none Exacerbating factors: drug use Context: recent drug abuse Associated psychiatric symptoms: suicidal ideation - General Chief Complaint: Psychiatric Symptoms Stated Complaint: vol psych eval/dr sent Time Seen by Provider: 06/15/18 16:22 - History of Present Illness HPI Narrative: This is a 28 year-old, , female who presents voluntarily to the ED for reportedly feeling manic and having intermittent suicidal ideation for "the past couple of weeks". Her last psychiatric inpatient admission at this facility appears to have been in 2010 however, she does state that she has followed up with [facility]. Reviewed electronic medical record, labs, discuss case with staff. Patient's toxicology screen is positive for cocaine. Evaluated her in her room and J pod. She is found awake, alert, and oriented 4. Her speech is clear, logical , and organized. She endorses suicide in a vague way, denies feeling homicidal, and denies auditory or visual hallucinations. I can elicit no delusional material. Her speech is rapid and somewhat pressured, but clear, logical and organized. Her mood and affect are anxious which may be an after affect of the cocaine use. Patient advises that she has a history of BPD, OCD, and PTSD. She states that she has been on lithium, vistaril, and trazadone but states "I was taking Latuda that was awesome". She reports that she lives with her parents. 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 There is a familial history of bipolar disorder. She states that she attempted suicide at age 17 by overdose. She states that she smokes a pack of cigarettes per day drinks alcohol a couple of times a week but denies using drugs although again she was positive for cocaine. (Sara Silver) - Related Data Home Medications Medication Instructions Recorded Confirmed atenolol 100 mg PO DAILY 06/15/18 06/15/18 clonidine HCl 0.1 mg PO BID 06/15/18 06/15/18 hydromorphone 2 mg PO Q4-6H PRN 06/15/18 06/15/18 lithium carbonate 100 mg PO BID 06/15/18 06/15/18 omeprazole magnesium [Prilosec OTC] 40 mg PO DAILY 06/15/18 06/15/18 Allergies Allergy/AdvReac Type Severity Reaction Status Date / Time paroxetine Allergy Severe UNKNOWN Verified 06/15/18 07:34 [facility] - History History Provided By: Patient - Medical History Medical History: Medical History (Last Reviewed 06/15/18 @ 18:13 by HAROON Najera) Anxiety Bipolar disorder delivery delivered Degenerative disc disease History of IBS PTSD (post-traumatic stress disorder) Rheumatoid arthritis - Surgical History Surgical History: Surgical History (Last Reviewed 06/15/18 @ 18:13 by HAROON Najera) H/O spinal fusion History of mandibular surgery - Tobacco History Second Hand Smoke Exposure: Yes Tobacco Use In Past 30 Days: Yes Smoking Status: Current every day smoker Tobacco Type: Cigarettes - Alcohol History How Often Do You Have a Drink Containing Alcohol: 2 to 3 times a week - Substance Use History Substance History: No History of Abuse - Travel History Recent Travel in the [facility] Within the Last 8 Weeks: No Recent Travel Out of the Country Within the Last 8 Weeks: No - Immunization History Tetanus Immunization: >5 Years Hx Influenza Vaccine This Season: No Psychiatric History - Psychiatric History Psychiatric Treatment History: History of Psychiatric Treatment, History Substance Abuse Treatment, History of Hospitalization in a Psychiatric Facility History of Inpatient Treatment: Yes Firearms in Home: No - Family Psychiatric History Father and grandfather diagnosed with bipolar disorder (Sara Silver) Physical Exam - General Limitations: no limitations General appearance: alert - Head Head exam: atraumatic - Psychiatric Psychiatric exam: Present: anxious, manic Mental Status Examination Appearance: Appropriate Consciousness: Alert Orientation: x4 Motor Activity: Normal gait Speech: Pressured (Slightly), Rapid Fund of Knowledge: Adequate Attention and Concentration: Adequate Memory: Unremarkable Mood: Manic Affect: Anxious Thought Process & Associations: Intact, Logical Thought Content: Appropriate Hallucination Type: None Delusion Type: None Suicidal Ideation: Yes (Vague) Suicidal Plan: No Suicidal Intention: No Homicidal Ideation: No Homicidal Plan: No Homicidal Intention: No Insight: Fair Judgment: Impulsive Initial Documented Vital Signs Temperature 98.5 F 06/15/18 01:13 Pulse Rate 110 H 06/15/18 01:13 Respiratory Rate 21 06/15/18 01:13 Blood Pressure 151/96 H 06/15/18 01:13 Pulse Oximetry 96 07/26/18 01:13 Last Documented Vital Signs Temperature 98.5 F 06/15/18 08:34 Pulse Rate 97 H 06/15/18 16:24 Respiratory Rate 18 06/15/18 16:24 Blood Pressure 146/99 H 06/15/18 16:24 Pulse Oximetry 98 06/15/18 15:44 MDM - Psych - Diagnosis (1) Bipolar disorder (manic depression) Status: Acute - Lab Data Result diagrams: 06/15/18 02:50 06/15/18 02:05 - [facility] Narrative Medical decision making narrative: Given that the patient continues to endorse suicide in a vague manner and presents as somewhat manic I am admitting her to the 2600 unit for further evaluation and treatment as deemed necessary. I have obtained signed consent for her lithium as well as Atarax and Benadryl. (Sara Silver) - Lab Data Lab Results 06/15/18 06/15/18 06/15/18 Range/Units 02:05 02:05 02:05 WBC (4.0-11.0) th/mm3 RBC (4.00-5.30) mil/mm3 Hgb (11.6-15.3) gm/dL Hct (35.0-46.0) % MCV (80.0-100.0) fL MCH (27.0-34.0) pg MCHC (32.0-36.0) % RDW (11.6-17.2) % Plt Count (150-450) th/mm3 MPV (7.0-11.0) fL Prelim Diff (Auto) Neut % (Auto) (16.0-70.0) % Lymph % (Auto) (9.0-44.0) % Mercer % (Auto) (0.0-8.0) % Eos % (Auto) (0.0-4.0) % Baso % (Auto) (0.0-2.0) % Neut # (Auto) (1.8-7.7) th/mm3 Lymph # (Auto) (1.0-4.8) th/mm3 Mercer # (Auto) (0.0-0.9) th/mm3 Eos # (Auto) (0.0-0.4) th/mm3 Baso # (Auto) (0.0-0.2) th/mm3 WBC Differential Diff Scan Differential Comment Platelet Estimate (Normal) Platelet Morphology (Normal) Sodium 141 (136-145) meq/L Potassium 3.8 (3.5-5.1) meq/L Chloride 109 H (98-107) meq/L Carbon Dioxide 22.5 (21.0-32.0) meq/L Anion Gap 10 (5-15) meq/L BUN 6 L (7-18) mg/dL Creatinine 0.55 (0.50-1.00) mg/dL Estimated GFR Greater than 89 (>89) mL/min Random Glucose 98 (74-106) mg/dL Calcium 8.7 (8.5-10.1) mg/dL Total Bilirubin 0.5 (0.2-1.0) mg/dL AST 30 (15-37) U/L ALT 44 (10-53) U/L Alkaline Phosphatase 59 (45-117) U/L Total Protein 7.6 (6.4-8.2) g/dL Albumin 3.9 (3.4-5.0) g/dL TSH 1.380 (0.358-3.740) uIU/mL Urine Opiates Screen Neg (Neg) Ur Barbiturates Screen Neg (Neg) Ur Amphetamines Screen Neg (Neg) U Benzodiazepines Scrn Neg (Neg) Slaton 0.1 L (0.5-1.5) meq/L Urine Cocaine Screen Pos H (Neg) U Cannabinoids Screen Neg (Neg) Serum Alcohol 130 H (0-5) mg/dL 06/15/18 Range/Units 02:50 WBC 7.6 (4.0-11.0) th/mm3 RBC 4.19 (4.00-5.30) mil/mm3 Hgb 12.9 (11.6-15.3) gm/dL Hct 37.3 (35.0-46.0) % MCV 89.0 (80.0-100.0) fL MCH 30.8 (27.0-34.0) pg MCHC 34.7 (32.0-36.0) % RDW 13.1 (11.6-17.2) % Plt Count 326 (150-450) th/mm3 MPV 6.6 L (7.0-11.0) fL Prelim Diff (Auto) Slide review pending Neut % (Auto) 48.5 (16.0-70.0) % Lymph % (Auto) 41.9 (9.0-44.0) % Mercer % (Auto) 5.8 (0.0-8.0) % Eos % (Auto) 3.0 (0.0-4.0) % Baso % (Auto) 0.8 (0.0-2.0) % Neut # (Auto) 3.9 (1.8-7.7) th/mm3 Lymph # (Auto) 3.3 (1.0-4.8) th/mm3 Mercer # (Auto) 0.5 (0.0-0.9) th/mm3 Eos # (Auto) 0.2 (0.0-0.4) th/mm3 Baso # (Auto) 0.1 (0.0-0.2) th/mm3 WBC Differential . Diff Scan Auto diff confirmed Differential Comment . Platelet Estimate Normal (Normal) Platelet Morphology Clumped H (Normal) Sodium (136-145) meq/L Potassium (3.5-5.1) meq/L Chloride (98-107) meq/L Carbon Dioxide (21.0-32.0) meq/L Anion Gap (5-15) meq/L BUN (7-18) mg/dL Creatinine (0.50-1.00) mg/dL Estimated GFR (>89) mL/min Random Glucose (74-106) mg/dL Calcium (8.5-10.1) mg/dL Total Bilirubin (0.2-1.0) mg/dL AST (15-37) U/L ALT (10-53) U/L Alkaline Phosphatase (45-117) U/L Total Protein (6.4-8.2) g/dL Albumin (3.4-5.0) g/dL TSH (0.358-3.740) uIU/mL Urine Opiates Screen (Neg) Ur Barbiturates Screen (Neg) Ur Amphetamines Screen (Neg) U Benzodiazepines Scrn (Neg) Slaton (0.5-1.5) meq/L Urine Cocaine Screen (Neg) U Cannabinoids Screen (Neg) Serum Alcohol (0-5) mg/dL
[2018-06-15] MEDS ORDERED: LITHIUM CARBONATE PO SCH (21:00)
[2018-06-15] MEDS ORDERED: cloNIDine Susp (NICU) 20 MCG/ML 30 ML Bottle PO SCH (21:00)
[2018-06-15] MEDS ORDERED: LITHIUM CITRATE 300 MG/5 ML PO SCH (22:01)
[2018-06-16] MEDS ORDERED: Atenolol 100 MG Tablet PO SCH (09:00)
[2018-06-16 09:25] LABS: Anion Gap 9 meq/L (5-15); Blood Urea Nitrogen 6 mg/dL (7-18); Calcium 9.3 mg/dL (8.5-10.1); Carbon Dioxide 26.3 meq/L (21.0-32.0); Chloride 104 meq/L (98-107); Cholesterol 203 mg/dL (120-200); Glomerular Filtration Rate Greater Than 89 mL/min (>89); Glucose,Random 152 mg/dL (74-106); Potassium 3.4 meq/L (3.5-5.1); Sodium 139 meq/L (136-145)
[2018-06-16 09:28] LABS: HDL Cholesterol 41.4 mg/dL (40.0-60.0); LDL Cholesterol,Calculated 106 mg/dL (0-99); Triglycerides 278 mg/dL (42-150)
[2018-06-16] MEDS ORDERED: Bisacodyl 10 MG Supp RECTAL PRN (11:47)
[2018-06-16] MEDS ORDERED: Aluminum/Magnesium/Simethacone Susp 30 ML UDC PO PRN (11:47)
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
--- NOTE | 2018-06-16 12:28 | ECG ---
Date Performed: 06/15/2018 Time Performed: 14:53:02 PTAGE: 28 years EKG: Sinus rhythm NONSPECIFIC T-WAVE ABNORMALITY BORDERLINE ECG PREVIOUS TRACING 08/13/17 11.14 Since the previous tracing, no significant change noted DOCTOR: Zeus Rivera Interpretating Date/Time 06/16/2018 12:26:57
[2018-06-16] MEDS ORDERED: Senna/Docusate Sodium 8.6/50 MG Tablet PO SCH (21:00)
== END 2018-06-16 14:15 | disposition home or self-care (01) ==
LOC: NEPD 01:10 → NEDA 17:10 → H260 20:24
PROVIDERS: ADMIT Psychiatry & Neurology Psychiatry; ATTEND Psychiatry & Neurology Psychiatry